=== PATIENT | male | born 1940 | race Caucasian/White ===

== ENCOUNTER 2023-02-10 10:07 | Emergency (ER) | payer OTHER ==
--- OUTSIDE RECORDS SUMMARY | 2023-02-10 10:20 | XMS REPORT | Continuity of Care Document ---
:1940 Author Organization [facility] t Address [address] [facility] [address] [place] [address] Support Name Relationship Address Phone MARAL BECK Unavailable [phone] L French Beck Self [address] [facility] [phone] [place] [address] Care Team Providers Name Role Phone ALIE DIEGO Primary Care Physician Unavailable Yefarb_R Attending Clinician Unavailable Alexander BRISCOE, Dennis Montenegro Attending Clinician [phone] Scott BRISCOE, Juan Velasco Attending Clinician Parul BRISCOE, Jes Aranda Attending Clinician [phone] April Chris MA Attending Clinician Unavailable Emil Riley Attending Clinician EMIL PINZON Attending Clinician Unavailable Denis WILSON, Lorraine Brown Attending Clinician Bhupendra Castellon Attending Clinician [phone] BEVERLY DE LA GARZA Attending Clinician Unavailable Johnnieb_R Admitting Clinician Unavailable EMIL PINZON Admitting Clinician Unavailable Payers Payer Name Policy Type Policy Number Effective Date Expiration Date Ramesh LANDRY (MEDICARE [id number] 2021 REPLACEMENT PPO) 00:00:00 Problems Condition Condition Condition Status Onset Resolution Last Treating Co mments Source Name Details Category Date Date Treatment Clinician Date Class 1 Class 1 Disease Active [facility] obesity obesity 11-26 due to due to 00:00: Hospita excess excess 00 l calories calories with with serious serious comorbidit comorbidit y and body y and body mass index mass index (BMI) of (BMI) of 34.0 to 34.0 to 34.9 in 34.9 in adult adult Coronary Coronary Disease Active [facility] di artery artery 8 st calcificat calcificat 00:00: Ho spita ion seen ion seen 00 l on CAT on CAT scan scan Dyspnea Dyspnea Disease Active [facility] and and 11-02 respirator respirator 00:00: Ho spita y y 00 l abnormalit abnormalit ies ies Hypoxemia Hypoxemia Disease Active [facility] 11-02 00:00: Hospita 00 l Pulmonary Pulmonary Disease Active [facility] embolus embolus 11-02 00:00: Hospita 00 l Deep vein Deep vein Disease Active [facility] thrombosis thrombosis 11-02 00:00: Hospita 00 l Erectile Erectile Problem Active [place] on dysfunctio Dysfunctio 3 Pa tro n n 00:00: Urology 00 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 05-19 kidney kidney 00:00: Hospita disease disease 00 l (HCC) Cr (HCC) Cr 1.5mg/dL 1.5mg/dL 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 05-19 mellitus mellitus 00:00: Hospit a without without 00 l complicati complicati on, on, without without long-term long-term current current use of use of insulin insulin Urinary Urinary Disease Active [facility] tract tract 06-16 infectious infectious 00:00: Ho spita disease disease 00 l Deep vein Deep vein Disease Active 2016-04 [facility] thrombosis thrombosis 05-27 (DVT) (DVT) 00:00: Hospita 00 l Elevated Elevated Disease Active 2016-04 [facility] di blood-pres blood-pres 05-27 sure sure 00:00: Hospita reading reading 00 l without without diagnosis diagnosis of of hypertensi hypertensi on on Hyperglyce Hyperglyce Disease Active 2016-04 M ethodi wilian wilian 05-27 00:00: Hospita 00 l Hyperkalem Hyperkalem Disease Active 2016-04 M ethodi ia ia 2-01 st 00:00: Hospita 00 l Hemospermi Hemospermi Disease Active M ethodi a a 09-18 st 00:00: Hospita 00 l Kidney Kidney Disease Active [facility] disease disease 09-18 st 00:00: Hospita 00 l Lower Lower Problem Active [place] urinary Urinary 2-15 [facility] tract Tract 00:00: Urology symptoms Symptoms 00 due to Due to benign Benign prostatic Prostatic hypertroph Hypertroph y y 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 2-15 st kidney kidney 00:00: Hospita disease disease 00 l 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 00:00: Hosp reinaldo 00 l 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 00:00: Ho spita c c 00 l hematuria hematuria Pulmonary Pulmonary Disease Active [facility] embolism embolism 04-26 st 00:00: Hospita 00 l No known No known Disease Unive rs active active ity of problems problems [facility] Allergies, Adverse Reactions, Alerts Allergy Allergy Status Severity Reaction(s) Onset Inactive Treating Comm ents Source Name Type Date Date Clinician Penicill Propensi Active Shortness of 2021-04 [facility] ins ty to Breath 1-30 ity of adverse 00:00: [place] reaction 00 [facility] PENICILL Drug Active SOB 2021-04 Univers INS Class 1-30 ity of 00:00: [place] 00 [facility] Cephalos Propensi Active Method i porins ty to 6-20 st adverse 00:00: Hospita reaction 00 l s to drug Penicill Propensi Active Method i ins ty to 6-20 st adverse 00:00: Hospita reaction 00 l s to drug Cephalos Propensi Active Shortness Of [facility] porins ty to Breath 3-30 st adverse 00:00: Hospita reaction 00 l s to drug Penicill Propensi Active Hives [facility] ins ty to 3-30 st adverse 00:00: Hospita reaction 00 l s to drug Cephalex Allergy Active [place] in to 04-26 [facility] substanc 00:00: Urology e 00 PENICILL Allergy Active Rash [facility] INS to 04-26 [facility] substanc 00:00: Urology e 00 NO KNOWN Drug Active Univers ALLERGIE Class ity of S [facility] Family History Family Member Diagnosis Comments Start Date Stop Date Source Natural [facility] Natural mother Breast cancer [facility] Natural [facility] Natural mother [facility] Social History Social Habit Start Date Stop Date Quantity Comments Source History of tobacco Current smoker [facility] Alcohol intake 2022-12-24 2022-12-24 Current drinker [facility] dist 00:00:00 00:00:00 of alcohol Hospital (finding) History of Social 2022-12-24 2022-12-[address] function 00:00:00 00:00:00 Hospital Tobacco use and 2022-05-25 2022-05-25 Smokeless [facility] exposure 00:00:00 00:00:00 tobacco non-user Hospital Sex Ass[birth year] At [birth year] [facility] 00:00:00 00:00:00 Hospital Smoking Status Start Date Stop Date Source Tobacco smoking [facility] consumption unknown [facility] Ex-smoker 2022-05-25 00:00:00 2022-05-25 [facility] 00:00:00 Medications Ordered Filled Start Stop Current Ordering Indication Dosage Frequency Signature Comments Components Source Medication Medication Date Date Medication? Clinician (SIG) Name Name pantoprazol Yes TAKE 1 Meth janae e 9-[address] (PROTONIX) 00:00: MOUTH Hospit a 40 MG EC 00 EVERY DAY l tablet tadalafil Yes 20mg Q24H Take 1 Method i (CIALIS) 20 8-31 tablet (20 st mg tablet 11:37: mg total) Hos sheri 03 by mouth l daily as needed. multivitami Yes 1{tbl} QD Take 1 Me thodi n 8-[address] (THERAGRAN) 11:37: mouth Hospi ta tablet 03 daily. l rivaroxaban Yes 15mg QD Take 1 Meth janae (Xarelto) 8-02 tablet (15 st 15 mg 00:00: mg total) Hospita tablet 00 by mouth l daily. pantoprazol 2022- No TAKE 1 Met hodi e 6-12 09-[address] (PROTONIX) 00:00: 00:00 MOUTH Hospi ta 40 MG EC 00 :00 EVERY DAY l tablet metFORMIN Yes TAKE 1 Method i (GLUCOPHAGE 5-[address] ) 500 mg 00:00: MOUTH Hospita tablet 00 TWICE A l DAY pantoprazol 2022- No TAKE 1 Met hodi e 3-13 06-[address] (PROTONIX) 00:00: 00:00 MOUTH Hospi ta 40 MG EC 00 :00 EVERY DAY l tablet rivaroxaban 2022- No TAKE 1 Met [facility]odi (Xarelto) 2-10 08-[address] 20 mg 00:00: 00:00 MOUTH Hospita tablet 00 :00 EVERY DAY l cholecalcif 2022- No 5000U QD Take 5,000 [facility] silva, 1-30 01-[address] vitamin D3, 12:23: 00:00 mouth Hosp reinaldo 5,000 unit 14 :00 daily. 3 l capsule TABLETS BY MOUTH DAILY pantoprazol 2021-04 Yes TAKE 1 Meth jaane e 2-[address] (PROTONIX) 00:00: MOUTH Hospit a 40 MG EC 00 EVERY DAY l tablet pantoprazol 2021-04 Yes TAKE 1 Meth janae e 2-[address] (PROTONIX) 00:00: MOUTH Hospit a 40 MG EC 00 EVERY DAY l tablet pantoprazol 2021-04 Yes TAKE 1 Meth janae e 2-[address] (PROTONIX) 00:00: MOUTH Hospit a 40 MG EC 00 EVERY DAY l tablet pantoprazol 2021-04 Yes TAKE 1 Meth janae e 2-[address] (PROTONIX) 00:00: MOUTH Hospit a 40 MG EC 00 EVERY DAY l tablet pantoprazol 2021-04- No TAKE 1 Met hodi e 2-15 03-[address] (PROTONIX) 00:00: 00:00 MOUTH Hospi ta 40 MG EC 00 :00 EVERY DAY l tablet No known 2021-04 No No known Unive rs medications -30 medication it y of 11:47: s [address] rivaroxaban 2021-04 Yes TAKE 1 Meth janae (Xarelto) 1-[address] 20 mg 00:00: MOUTH Hospita tablet 00 EVERY DAY l rivaroxaban 2021-04 Yes TAKE 1 Meth janae (Xarelto) 1-[address] 20 mg 00:00: MOUTH Hospita tablet 00 EVERY DAY l rivaroxaban 2021-04 Yes TAKE 1 Meth janae (Xarelto) 1-[address] 20 mg 00:00: MOUTH Hospita tablet 00 EVERY DAY l rivaroxaban 2021-04 Yes TAKE 1 Meth janae (Xarelto) 1-[address] 20 mg 00:00: MOUTH Hospita tablet 00 EVERY DAY l rivaroxaban 2021-04- No TAKE 1 Met hodi (Xarelto) 1-07 02-[address] 20 mg 00:00: 00:00 MOUTH Hospita tablet 00 :00 EVERY DAY l pantoprazol No 40mg QD Take 1 Met hodi e 01-12 tablet (40 st (PROTONIX) 14:55: 00:00 mg total) H ospita 40 MG EC 49 :00 by mouth l tablet daily. pantoprazol No 40mg QD Take 1 Met hodi e 01-12 tablet (40 st (PROTONIX) 14:55: 00:00 mg total) H ospita 40 MG EC 49 :00 by mouth l tablet daily. pantoprazol No 40mg QD Take 1 Met hodi e 01-12 tablet (40 st (PROTONIX) 14:55: 00:00 mg total) H ospita 40 MG EC 49 :00 by mouth l tablet daily. pantoprazol No 40mg QD Take 1 Met hodi e 01-12 tablet (40 st (PROTONIX) 14:55: 00:00 mg total) H ospita 40 MG EC 49 :00 by mouth l tablet daily. pantoprazol 2021- No TAKE 1 Met hodi e 01-12-[address] (PROTONIX) 00:00: 00:00 MOUTH Hospi ta 40 MG EC 00 :00 EVERY DAY l tablet pantoprazol 2021- No TAKE 1 Met hodi e 01-12-[address] (PROTONIX) 00:00: 00:00 MOUTH Hospi ta 40 MG EC 00 :00 EVERY DAY l tablet pantoprazol 0 2021- No TAKE 1 Met hodi e 01-12 12-[address] (PROTONIX) 00:00: 00:00 MOUTH Hospi ta 40 MG EC 00 :00 EVERY DAY l tablet pantoprazol 0 2021- No TAKE 1 Met hodi e 01-12 12-[address] (PROTONIX) 00:00: 00:00 MOUTH Hospi ta 40 MG EC 00 :00 EVERY DAY l tablet pantoprazol 2021- No TAKE 1 Met hodi e 01-12 12-[address] (PROTONIX) 00:00: 00:00 MOUTH Hospi ta 40 MG EC 00 :00 EVERY DAY l tablet multivitami 2021-0 Yes 1{tbl} QD Take 1 Me thodi n 9-07 tablet by (THERAGRAN) 14:04: mouth Hospi ta tablet 17 daily. l cholecalcif 2021-0 Yes 5000U QD Take 5,000 Method[facility] silva, 9-07 Units by vitamin D3, 14:04: mouth Hospi ta 5,000 unit 17 daily. 3 l capsule TABLETS BY MOUTH DAILY tadalafil 2-0 Yes 20mg Q24H Take 20 mg Me thodi (CIALIS) 20 9-[address] mg tablet 14:04: daily as Hosp reinaldo 17 needed. l multivitami 2-0 Yes 1{tbl} QD Take 1 Me thodi n 9-07 tablet by (THERAGRAN) 14:04: mouth Hospi ta tablet 17 daily. l cholecalcif 2021-0 Yes 5000U QD Take 5,000 Methodi silva, 9-07 Units by vitamin D3, 14:04: mouth Hospi ta 5,000 unit 17 daily. 3 l capsule TABLETS BY MOUTH DAILY tadalafil 2022-0 Yes 20mg Q24H Take 20 mg Me thodi (CIALIS) 20 9-[address] mg tablet 14:04: daily as Hosp reinaldo 17 needed. l multivitami 2-0 Yes 1{tbl} QD Take 1 Me thodi n 9-07 tablet by (THERAGRAN) 14:04: mouth Hospi ta tablet 17 daily. l cholecalcif 2-0 Yes 5000U QD Take 5,000 Methodi silva, 9-[address] vitamin D3, 14:04: mouth Hospi ta 5,000 unit 17 daily. 3 l capsule TABLETS BY MOUTH DAILY tadalafil 0 Yes 20mg Q24H Take 20 mg Me thodi (CIALIS) 20 -[address] mg tablet 14:04: daily as Hosp reinaldo 17 needed. l multivitami Yes 1{tbl} QD Take 1 Me thodi n - tablet by st (THERAGRAN) 14:04: mouth Hospi ta tablet 17 daily. l cholecalcif Yes 5000U QD Take 5,000 Methodi silva, 9-07 Units by vitamin D3, 14:04: mouth Hospi ta 5,000 unit 17 daily. 3 l capsule TABLETS BY MOUTH DAILY tadalafil 0 Yes 20mg Q24H Take 20 mg Me thodi (CIALIS) 20 12-[address] mg tablet 14:04: daily as Hosp reinaldo 17 needed. l Xarelto 20 2021- No TAKE 1 Meth janae mg tablet 09-[address] 00:00: 00:00 MOUTH Hospita 00 :00 EVERY DAY l Xarelto 20 2021-0 2021- No TAKE 1 Meth janae mg tablet 09-[address] 00:00: 00:00 MOUTH Hospita 00 :00 EVERY DAY l Xarelto 20 2021-0 2021- No TAKE 1 Meth janae mg tablet 09-[address] 00:00: 00:00 MOUTH Hospita 00 :00 EVERY DAY l Xarelto 20 2021-0 2021- No TAKE 1 Meth janae mg tablet 09-[address] 00:00: 00:00 MOUTH Hospita 00 :00 EVERY DAY l Xarelto 20 2021-0 2021- No TAKE 1 Meth janae mg tablet 09-[address] 00:00: 00:00 MOUTH Hospita 00 :00 EVERY DAY l metFORMIN 2021-2021- No 500mg Q.5D Take 500 Me thodi (GLUCOPHAGE 09 05-[address] ) 500 mg 13:08: 00:00 mouth 2 Hospi ta tablet 19 :00 (two) l times a day with meals. metFORMIN 2021- No 500mg Q.5D Take 500 Me thodi (GLUCOPHAGE 5-09 05-[address] ) 500 mg 13:08: 00:00 mouth 2 Hospi ta tablet 19 :00 (two) l times a day with meals. metFORMIN 2021- No 500mg Q.5D Take 500 Me thodi (GLUCOPHAGE 5-09 05-[address] ) 500 mg 13:08: 00:00 mouth 2 Hospi ta tablet 19 :00 (two) l times a day with meals. metFORMIN 2021- No 500mg Q.5D Take 500 Me thodi (GLUCOPHAGE 5-09 05-[address] ) 500 mg 13:08: 00:00 mouth 2 Hospi ta tablet 19 :00 (two) l times a day with meals. metFORMIN Yes TAKE 1 Method i (GLUCOPHAGE 5-[address] ) 500 mg 00:00: MOUTH Hospita tablet 00 TWICE A l DAY metFORMIN 0 Yes TAKE 1 Method i (GLUCOPHAGE 5-[address] ) 500 mg 00:00: MOUTH Hospita tablet 00 TWICE A l DAY metFORMIN 0 Yes TAKE 1 Method i (GLUCOPHAGE 5-[address] ) 500 mg 00:00: MOUTH Hospita tablet 00 TWICE A l DAY metFORMIN 2021-0 Yes TAKE 1 Method i (GLUCOPHAGE 5-[address] ) 500 mg 00:00: MOUTH Hospita tablet 00 TWICE A l DAY metFORMIN 2021-0 2022- No TAKE 1 Metho di (GLUCOPHAGE 5-09 05-[address] ) 500 mg 00:00: 00:00 MOUTH Hospita tablet 00 :00 TWICE A l DAY pantoprazol 2021- No pantoprazo Methodi e 05-[address] (PROTONIX) 15:32: 00:00 tablet,del Hospita 40 MG EC 01 :00 ayed l tablet release pantoprazol 2021- No pantoprazo Methodi e 05-[address] (PROTONIX) 15:32: 00:00 tablet,del Hospita 40 MG EC 01 :00 ayed l tablet release pantoprazol 2021- No pantoprazo Methodi e 05-[address] (PROTONIX) 15:32: 00:00 tablet,del Hospita 40 MG EC 01 :00 ayed l tablet release pantoprazol pantoprazo Methodi e 05-[address] (PROTONIX) 15:32: 00:00 tablet,del Hospita 40 MG EC 01 :00 ayed l tablet release ascorbic 2021- No 500mg QD Take 500 Met hodi acid, 05-19-24 mg by vitamin C, 15:31: 00:00 mouth Hospi ta (VITAMIN C) 57 :00 daily. l 500 MG tablet ascorbic 2021- No 500mg QD Take 500 Met hodi acid, 05-19-24 mg by vitamin C, 15:31: 00:00 mouth Hospi ta (VITAMIN C) 57 :00 daily. l 500 MG tablet ascorbic No 500mg QD Take 500 Met hodi acid, 05-19-24 mg by vitamin C, 15:31: 00:00 mouth Hospi ta (VITAMIN C) 57 :00 daily. l 500 MG tablet ascorbic No 500mg QD Take 500 Met hodi acid, 05-19-24 mg by vitamin C, 15:31: 00:00 mouth Hospi ta (VITAMIN C) 57 :00 daily. l 500 MG tablet Xarelto 20 2021- No TAKE 1 Meth janae mg tablet 12-26-[address] 00:00: 00:00 MOUTH Hospita 00 :00 EVERY DAY l Xarelto 20 2021- No TAKE 1 Meth janae mg tablet 12-26 05-[address] 00:00: 00:00 MOUTH Hospita 00 :00 EVERY DAY l Xarelto 20 2021- No TAKE 1 Meth janae mg tablet 12-26 05-[address] 00:00: 00:00 MOUTH Hospita 00 :00 EVERY DAY l Xarelto 20 2021- No TAKE 1 Meth janae mg tablet 12-26 05-[address] 00:00: 00:00 MOUTH Hospita 00 :00 EVERY DAY l pantoprazol 2021- No TAKE 1 Met hodi e 08-[address] (PROTONIX) 00:00: 00:00 MOUTH Hospi ta 40 MG EC 00 :00 EVERY DAY l tablet pantoprazol 2021- No TAKE 1 Met hodi e 08-[address] (PROTONIX) 00:00: 00:00 MOUTH Hospi ta 40 MG EC 00 :00 EVERY DAY l tablet pantoprazol 2021- No TAKE 1 Met hodi e 08-[address] (PROTONIX) 00:00: 00:00 MOUTH Hospi ta 40 MG EC 00 :00 EVERY DAY l tablet pantoprazol 2021- No TAKE 1 Met hodi e 08-[address] (PROTONIX) 00:00: 00:00 MOUTH Hospi ta 40 MG EC 00 :00 EVERY DAY l tablet ammonium ammonium No ammonium [place] ston lactate 12 lactate 12 lactate 12 [facility] % lotion % lotion % lotion Uro logy APPLY DAILY APPLY DAILY APPLY TO LEGS TO LEGS DAILY TO LEGS BinaxNOW BinaxNOW No BinaxNOW [facility] ston COVID-19 Ag COVID-19 Ag COVID-19 [facility] Self Test Self Test Ag Self Ur ology kit REFER kit REFER Test kit TO TO REFER TO MANUFACTURE MANUFACTURE MANUFACTUR R R ER INSTRUCTION INSTRUCTION INSTRUCTIO S INCLUDED S INCLUDED NS IN IN INCLUDED PACKAGING PACKAGING IN PACKAGING ciprofloxac ciprofloxac No ciprofloxa [place] in 250 mg in 250 mg letha 250 mg [facility] tablet TAKE tablet TAKE tablet Urology 1 TABLET BY 1 TABLET BY TAKE 1 MOUTH EVERY MOUTH EVERY TABLET BY 12 HOURS 12 HOURS MOUTH FOR 7 DAYS FOR 7 DAYS EVERY 12 HOURS FOR 7 DAYS clindamycin clindamycin No clindamyci [place] phosphate 1 phosphate 1 n M etro % topical % topical phosphate Urology solution solution 1 % AFFECTED AFFECTED topical EAR TWICE A EAR TWICE A solution DAY TO NECK DAY TO NECK AFFECTED EAR TWICE A DAY TO NECK magnesium magnesium No magnesium [place] oxide 400 oxide 400 oxide 400 [facility] mg (241.3 mg (241.3 mg (241.3 Urology mg mg mg magnesium) magnesium) magnesium) tablet TAKE tablet TAKE tablet 1 TABLET BY 1 TABLET BY TAKE 1 MOUTH EVERY MOUTH EVERY TABLET BY DAY DAY MOUTH EVERY DAY metformin metformin No metformin [place] 500 mg 500 mg 500 mg [facility] tablet TAKE tablet TAKE tablet Urology 1 TABLET BY 1 TABLET BY TAKE 1 MOUTH TWICE MOUTH TWICE TABLET BY A DAY A DAY MOUTH TWICE A DAY minocycline minocycline No minocyclin [place] 100 mg 100 mg e 100 mg [facility] capsule capsule capsule Urolog y TAKE 1 TAKE 1 TAKE 1 CAPSULE BY CAPSULE BY CAPSULE BY MOUTH TWICE MOUTH TWICE MOUTH A DAY A DAY TWICE A DAY multivitami multivitami No multivitam [place] n n in [facility] Urology pantoprazol pantoprazol No pantoprazo [place] e 40 mg e 40 mg le 40 mg [facility] tablet,gary tablet,gary tablet,del Urology yed release yed release ayed TAKE 1 TAKE 1 release TABLET BY TABLET BY TAKE 1 MOUTH EVERY MOUTH EVERY TABLET BY DAY DAY MOUTH EVERY DAY tadalafil tadalafil No tadalafil [place] 20 mg 20 mg 20 mg [facility] tablet TAKE tablet TAKE tablet Urology 1 TABLET BY 1 TABLET BY TAKE 1 MOUTH EVERY MOUTH EVERY TABLET BY DAY DAY MOUTH DIRECTED DIRECTED EVERY DAY DIRECTED triamcinolo triamcinolo No triamcinol [place] ne ne one [facility] acetonide acetonide acetonide Urology 0.1 % 0.1 % 0.1 % topical topical topical cream APPLY cream APPLY cream TWICE DAILY TWICE DAILY APPLY TO LEGS TO LEGS TWICE DAILY TO LEGS Xarelto 20 Xarelto 20 No Xarelto 20 [place] mg tablet mg tablet mg tablet [facility] TAKE 1 TAKE 1 TAKE 1 Urology TABLET BY TABLET BY TABLET BY MOUTH EVERY MOUTH EVERY MOUTH DAY DAY EVERY DAY albuterol albuterol No albuterol [place] sulfate HFA sulfate HFA sulfate [facility] 90 90 HFA 90 Urology mcg/actuati mcg/actuati mcg/actuat on aerosol on aerosol ion inhaler inhaler aerosol inhaler ammonium ammonium No ammonium [place] [facility] lactate 12 lactate 12 lactate 12 [facility] % lotion % lotion % lotion Uro logy APPLY DAILY APPLY DAILY APPLY TO LEGS TO LEGS DAILY TO LEGS Anoro Anoro No Anoro [place]rewal Ellipta Ellipta Ellipta Metro 62.5 mcg-25 62.5 mcg-25 62.5 U rology mcg/actuati mcg/actuati mcg-25 on powder on powder mcg/actuat for for ion powder inhalation inhalation for inhalation BinaxNOW BinaxNOW No BinaxNOW [facility] ston COVID-19 Ag COVID-19 Ag COVID-19 [facility] Self Test Self Test Ag Self Ur ology kit REFER kit REFER Test kit TO TO REFER TO MANUFACTURE MANUFACTURE MANUFACTUR R R ER INSTRUCTION INSTRUCTION INSTRUCTIO S INCLUDED S INCLUDED NS IN IN INCLUDED PACKAGING PACKAGING IN PACKAGING ciprofloxac ciprofloxac No ciprofloxa [place] in 250 mg in 250 mg letha 250 mg [facility] tablet TAKE tablet TAKE tablet Urology 1 TABLET BY 1 TABLET BY TAKE 1 MOUTH EVERY MOUTH EVERY TABLET BY 12 HOURS 12 HOURS MOUTH FOR 7 DAYS FOR 7 DAYS EVERY 12 HOURS FOR 7 DAYS clindamycin clindamycin No clindamyci [place] phosphate 1 phosphate 1 n M etro % topical % topical phosphate Urology solution solution 1 % AFFECTED AFFECTED topical EAR TWICE A EAR TWICE A solution DAY TO NECK DAY TO NECK AFFECTED EAR TWICE A DAY TO NECK magnesium magnesium No magnesium [place] oxide 400 oxide 400 oxide 400 [facility] mg (241.3 mg (241.3 mg (241.3 Urology mg mg mg magnesium) magnesium) magnesium) tablet TAKE tablet TAKE tablet 1 TABLET BY 1 TABLET BY TAKE 1 MOUTH EVERY MOUTH EVERY TABLET BY DAY DAY MOUTH EVERY DAY metformin metformin No metformin [place] 500 mg 500 mg 500 mg [facility] tablet TAKE tablet TAKE tablet Urology 1 TABLET BY 1 TABLET BY TAKE 1 MOUTH TWICE MOUTH TWICE TABLET BY A DAY A DAY MOUTH TWICE A DAY minocycline minocycline No minocyclin [place] 100 mg 100 mg e 100 mg [facility] capsule capsule capsule Urolog y TAKE 1 TAKE 1 TAKE 1 CAPSULE BY CAPSULE BY CAPSULE BY MOUTH TWICE MOUTH TWICE MOUTH A DAY A DAY TWICE A DAY multivitami multivitami No multivitam [place] n n in [facility] pantoprazol pantoprazol No pantoprazo [place] e 40 mg e 40 mg le 40 mg [facility] tablet,gary tablet,gary tablet,del Urology yed release yed release ayed TAKE 1 TAKE 1 release TABLET BY TABLET BY TAKE 1 MOUTH EVERY MOUTH EVERY TABLET BY DAY DAY MOUTH EVERY DAY tadalafil tadalafil No tadalafil [place] 20 mg 20 mg 20 mg [facility] tablet TAKE tablet TAKE tablet Urology 1 TABLET BY 1 TABLET BY TAKE 1 MOUTH EVERY MOUTH EVERY TABLET BY DAY DAY MOUTH DIRECTED DIRECTED EVERY DAY DIRECTED triamcinolo triamcinolo No triamcinol [facility] ne ne one [facility] acetonide acetonide acetonide Urology 0.1 % 0.1 % 0.1 % topical topical topical cream APPLY cream APPLY cream TWICE DAILY TWICE DAILY APPLY TO LEGS TO LEGS TWICE DAILY TO LEGS Xarelto 15 Xarelto 15 No Xarelto 15 [place] mg tablet mg tablet mg tablet [facility] Xarelto 20 Xarelto 20 No Xarelto 20 [place] mg tablet mg tablet mg tablet [facility] TAKE 1 TAKE 1 TAKE 1 Urology TABLET BY TABLET BY TABLET BY MOUTH EVERY MOUTH EVERY MOUTH DAY DAY EVERY DAY ciprofloxac ciprofloxac No ciprofloxa [place] in 500 mg in 500 mg letha 500 mg [facility] tablet TAKE tablet TAKE tablet Urology 1 TABLET BY 1 TABLET BY TAKE 1 MOUTH TWICE MOUTH TWICE TABLET BY A DAY A DAY MOUTH TWICE A DAY metformin metformin No metformin [place] 500 mg 500 mg 500 mg [facility] tablet TAKE tablet TAKE tablet Urology 1 TABLET BY 1 TABLET BY TAKE 1 MOUTH TWICE MOUTH TWICE TABLET BY A DAY A DAY MOUTH TWICE A DAY metronidazo metronidazo No metronidaz [place] le 500 mg le 500 mg ole 500 mg [facility] tablet TAKE tablet TAKE tablet Urology 1 TABLET BY 1 TABLET BY TAKE 1 MOUTH THREE MOUTH THREE TABLET BY TIMES A DAY TIMES A DAY MOUTH THREE TIMES A DAY multivitami multivitami No multivitam [place] n n in [facility] pantoprazol pantoprazol No pantoprazo [place] e 40 mg e 40 mg le 40 mg [facility] tablet,gary tablet,gary tablet,del Urology yed release yed release ayed TAKE 1 TAKE 1 release TABLET BY TABLET BY TAKE 1 MOUTH EVERY MOUTH EVERY TABLET BY DAY DAY MOUTH EVERY [facility] tadalafil tadalafil No tadalafil [place] 20 mg 20 mg 20 mg [facility] tablet TAKE tablet TAKE tablet Urology 1 TABLET BY 1 TABLET BY TAKE 1 MOUTH EVERY MOUTH EVERY TABLET BY DAY DAY MOUTH DIRECTED DIRECTED EVERY DAY DIRECTED tamsulosin tamsulosin No tamsulosin [facility] 0.4 mg 0.4 mg 0.4 mg [facility] capsule capsule capsule Urolog y TAKE 1 TAKE 1 TAKE 1 CAPSULE BY CAPSULE BY CAPSULE BY MOUTH EVERY MOUTH EVERY MOUTH DAY DAY EVERY DAY Xarelto 20 Xarelto 20 No Xarelto 20 [facility] mg tablet mg tablet mg tablet [facility] TAKE 1 TAKE 1 TAKE 1 Urology TABLET BY TABLET BY TABLET BY MOUTH EVERY MOUTH EVERY MOUTH DAY DAY EVERY DAY ammonium ammonium No ammonium [facility] lactate 12 lactate 12 lactate 12 [facility] % lotion % lotion % lotion Uro logy APPLY DAILY APPLY DAILY APPLY TO LEGS TO LEGS DAILY TO LEGS BinaxNOW BinaxNOW No BinaxNOW [facility] COVID-19 Ag COVID-19 Ag COVID-19 [facility] Self Test Self Test Ag Self Ur ology kit REFER kit REFER Test kit TO TO REFER TO MANUFACTURE MANUFACTURE MANUFACTUR R R ER INSTRUCTION INSTRUCTION INSTRUCTIO S INCLUDED S INCLUDED NS IN IN INCLUDED PACKAGING PACKAGING IN PACKAGING clindamycin clindamycin No clindamyci [place] phosphate 1 phosphate 1 n M etro % topical % topical phosphate Urology solution solution 1 % APPLY TO APPLY TO topical AFFECTED AFFECTED solution AREA TWICE AREA TWICE APPLY TO A DAY A DAY AFFECTED AREA TWICE A DAY magnesium magnesium No magnesium Grewal oxide 400 oxide 400 oxide 400 [facility] mg (241.3 mg (241.3 mg (241.3 Urology mg mg mg magnesium) magnesium) magnesium) tablet TAKE tablet TAKE tablet 1 TABLET BY 1 TABLET BY TAKE 1 MOUTH EVERY MOUTH EVERY TABLET BY DAY DAY MOUTH EVERY DAY metformin metformin No metformin [place] 500 mg 500 mg 500 mg [facility] tablet TAKE tablet TAKE tablet Urology 1 TABLET BY 1 TABLET BY TAKE 1 MOUTH TWICE MOUTH TWICE TABLET BY A DAY A DAY MOUTH TWICE A DAY multivitami multivitami No multivitam [place] n in [facility] pantoprazol pantoprazol No pantoprazo [place] e 40 mg e 40 mg le 40 mg [facility] tablet,gary tablet,gary tablet,del Urology yed release yed release ayed TAKE 1 TAKE 1 release TABLET BY TABLET BY TAKE 1 MOUTH EVERY MOUTH EVERY TABLET BY DAY DAY MOUTH EVERY DAY tadalafil tadalafil No tadalafil [place] 20 mg 20 mg 20 mg [facility] tablet TAKE tablet TAKE tablet Urology 1 TABLET BY 1 TABLET BY TAKE 1 MOUTH EVERY MOUTH EVERY TABLET BY DAY DAY MOUTH DIRECTED DIRECTED EVERY DAY DIRECTED triamcinolo triamcinolo No triamcinol [place] ne ne one [facility] acetonide acetonide acetonide Urology 0.1 % 0.1 % 0.1 % topical topical topical cream APPLY cream APPLY cream TWICE DAILY TWICE DAILY APPLY TO LEGS TO LEGS TWICE DAILY TO LEGS Xarelto 20 Xarelto 20 No Xarelto 20 [place] mg tablet mg tablet mg tablet [facility] TAKE 1 TAKE 1 TAKE 1 Urology TABLET BY TABLET BY TABLET BY MOUTH EVERY MOUTH EVERY MOUTH DAY DAY EVERY DAY Immunizations Ordered Immunization Filled Immunization Date Status Commen ts Source Name Name TechozID-19 MRNA 2020-05-23 Completed [facility] VACCINATION 00:00:00 [facility] PFIZER COVID-19 MRNA 2020-05-23 Completed [facility] VACCINATION 00:00:00 [facility] PFIZER COVID-19 MRNA 2020-05-23 Completed [facility] VACCINATION 00:00:00 [facility] PFIZER COVID-19 MRNA 2020-05-23 Completed [facility] VACCINATION 00:00:00 [facility] PFIZER COVID-19 MRNA 2020-05-04 Completed [facility]ist VACCINATION 00:00:00 [facility] PFIZER COVID-19 MRNA 2020-05-04 Completed [facility]ist VACCINATION 00:00:00 [facility] PFIZER COVID-19 MRNA 2020-05-04 Completed [facility] VACCINATION 00:00:00 [facility] PFIZER COVID-19 MRNA 2020-05-04 Completed [facility]ist VACCINATION 00:00:00 [facility] influenza, influenza, 2020-02-25 Completed [place] [facility] injectable, injectable, 00:00:00 Urology quadrivalent quadrivalent influenza, influenza, 2020-02-25 [facility], [facility]:00 Urology quadrivalent quadrivalent influenza, influenza, 2020-02-25 [facility], injectable, 00:00:00 Urology quadrivalent quadrivalent influenza, influenza, 2020-02-25 Completed [facility], injectable, 00:00:00 Urology quadrivalent quadrivalent influenza, influenza, 2018-06-20 Completed [facility], injectable, 00:00:00 Urology quadrivalent quadrivalent influenza, influenza, 2018-06-20 Completed [facility], injectable, 00:00:00 Urology quadrivalent quadrivalent influenza, influenza, 2018-06-20 Completed [place] [facility] injectable, injectable, 00:00:00 Urology quadrivalent quadrivalent influenza, influenza, 2018-06-20 Completed [facility], injectable, 00:00:00 Urology quadrivalent quadrivalent influenza, influenza, 2018-01-04 Completed [place] [facility] injectable, injectable, 00:00:00 Urology quadrivalent quadrivalent influenza, influenza, 2018-01-04 Completed [place] [facility] injectable, injectable, 00:00:00 Urology quadrivalent quadrivalent influenza, influenza, 2018-01-04 Completed [place] [facility] injectable, injectable, 00:00:00 Urology quadrivalent quadrivalent influenza, influenza, 2018-01-04 [facility], injectable, 00:00:00 Urology quadrivalent quadrivalent pneumococcal pneumococcal 2017-02-01 Completed [facility] tro polysaccharide PPV23 polysaccharide PPV23 00:00:00 Urology pneumococcal pneumococcal 2017-02-01 Completed [facility] tro polysaccharide PPV23 polysaccharide PPV23 00:00:00 Urology pneumococcal pneumococcal 2017-02-01 Completed [facility] tro polysaccharide PPV23 polysaccharide PPV23 00:00:00 Urology pneumococcal pneumococcal 2017-02-01 Completed [facility] tro polysaccharide PPV23 polysaccharide PPV23 00:00:00 Urology PFIZER COVID-19 MRNA Unknown Completed [facility] PFIZER COVID-19 MRNA Unknown Completed [facility] Vital Signs Vital Name Observation Time Observation Value Comments Source Height 2022-05-25 00:00:00 71 [in_i] [facility] Urology BMI (Body Mass 2022-05-25 00:00:00 34.9 kg/m2 [place] Index) [facility]rology Body Weight 2022-05-25 00:00:00 250 [lb_av] [facility] Systolic blood 2022-03-25 17:26:00 132 mm[Hg] [facility] Diastolic blood 2022-03-25 17:26:00 98 mm[facility]Hg[facility] Heart rate 2022-03-25 17:26:00 104 /min [facility] Body temperature 2022-03-25 17:26:00 36.89 Shakira [facility] Respiratory rate 2022-03-25 17:26:00 18 /min [facility] Body height 2022-03-25 17:26:00 177.8 cm [facility] Body weight 2022-03-25 17:26:00 113.399 kg [facility] BMI 2022-03-25 17:26:00 35.87 kg/m2 [facility] Oxygen saturation in 2022-03-25 17:26:00 96 /min [facility] Arterial blood by [facility] Pulse oximetry [facility] 2021-06-25 00:00:00 71 [in_i] [facility] Urology BMI (Body Mass 2021-06-25 00:00:00 34.9 kg/m2 [place] Index) Urology Body Weight 2021-06-25 00:00:00 250 [lb_av] [facility] Urology Body height 2022-12-24 16:37:00 180.3 cm [facility] Systolic blood 2022-11-25 21:17:00 138 mm[Hg] [facility] pressure Diastolic blood 2022-11-25 21:17:00 84 mm[Hg] [facility] pressure Heart rate 2022-11-25 21:17:00 93 /min [facility] Body weight 2022-11-25 21:17:00 112.492 kg [facility] BMI 2022-11-25 21:17:00 34.59 kg/m2 [facility] Systolic blood 2022-03-13 03:19:00 122 mm[Hg] [facility] pressure Diastolic blood 2022-03-13 03:19:00 80 mm[Hg] [facility] Hospital pressure Heart rate 2022-03-13 03:19:00 93 /min [facility] Body height 2022-03-13 03:19:00 180.3 cm [facility] Body weight 2022-03-13 03:19:00 114.76 kg [facility] BMI 2022-03-13 03:19:00 35.29 kg/m2 [facility] Procedures Procedure Date / Time Performing Clinician Source Performed CBC WITH PLATELET AND 2022-12-18 14:48:00 [facility]FFER[facility] COMPREHENSIVE METABOLIC 2022-12-18 14:48:00 [facility] PANEL PHOSPHORUS LEVEL 2022-12-18 14:48:00 [facility] ACID LEVEL 2022-12-18 14:48:00 [facility] PARATHYROID HORMONE 2022-12-18 14:48:00 [facility] CREATININE LEVEL, URINE, 2022-12-18 14:48:00 [facility] RANDOM URINALYSIS SCREEN AND 2022-12-18 14:48:00 [facility] MICROSCOPY, WITH REFLEX TO CULTURE PROTEIN, URINE, RANDOM 2022-12-18 14:48:00 Juan Chavez [facility] CBC WITH PLATELET AND 2022-12-01 21:16:00 [facility] DIFFERENTIAL Moni HEMOGLOBIN A1C 2022-12-01 21:16:00 [facility] Moni ESTIMATED GFR 2022-12-01 20:57:00 [facility] ECG 12-LEAD 2022-11-25 21:23:33 [facility] CT CHEST WO CONTRAST 2022-11-04 18:57:33 [facility] Manoj NM LUNG PERFUSION 2022-11-04 16:45:00 [facility] IMAGING Manoj FL FLUOROSCOPY OF 2022-11-04 14:57:36 [facility] DIAPHRAGM NO FILMS [facility] TTE COMPLETE, WO 2022-10-13 23:00:38 [facility] CONTRAST, W DOPPLER Moni ([id number]) US DUPLEX VENOUS LOWER 2022-10-13 20:57:25 [facility] EXTREMITY BILATERAL Moni XR CHEST 2 VW 2022-10-13 19:05:00 [facility] Moni XR CHEST 1 VW 2022-03-25 18:10:58 Emil Pinzon [facility] XR RIBS 3 VW LEFT 2022-03-25 18:10:58 Emil Pinzon [facility] NOTICE OF PRIVACY 2022-03-25 17:21:13 Doctor Unassigned, No [facility] Name [facility] CONSENT/REFUSAL FOR 2022-03-25 17:20:07 Doctor Unassigned, No [facility] COMPREHENSIVE METABOLIC 2022-03-12 18:23:00 [facility] PANEL B NATRIURETIC PEPTIDE 2022-03-12 18:23:00 Lorraine Barrios [facility] D-DIMER 2022-03-12 18:23:00 [facility] WITH PLATELET AND 2022-03-12 18:23[facility]00 [facility] WITH PLATELET AND 2022-03-12 18:23:00 Denis [facility] DIFFERENTIAL Diagnostic Colonoscopy 2010-04-26 00:00:00 [place] [facility] Hand Surgery 2008-04-26 00:00:00 Grewal [facility]-Arthroscopic Knee 2002-04-26 00:00:00 [place] [facility] Surgery Urology Plan of Care Planned Activity Planned Date Details Comments Source Future Scheduled Test 2023-02-10 DIABETES: RETINAL EYE [facility] 09:59:57 EXAM [code = DIABETES: RETINAL EYE EXAM] Future Scheduled Test 2023-02-10 DIABETIC FOOT EXAM [facility] 09:59:57 [code = DIABETIC FOOT EXAM] Future Scheduled Test 2023-02-10 SHINGLES VACCINES (1 [facility] 09:59:57 of 2) [code = SHINGLES VACCINES (1 of 2)] Future Scheduled Test 2023-02-10 RSV VACCINES > 60 YR [facility] 09:59:57 (1 - 1-dose 60+ series) [code = RSV VACCINES > 60 YR (1 - 1-dose 60+ series)] Future Scheduled Test 2023-02-10 65+ PNEUMOCOCCAL [facility] [place] [place] 09:59:57 VACCINE (2 - PCV) [code = 65+ PNEUMOCOCCAL VACCINE (2 - PCV)] Future Scheduled Test 2023-02-10 COVID-19 VACCINE (3 - [facility] 09:59:57 season) [code = COVID-19 VACCINE (3 - season)] Future Scheduled Test 2023-02-10 INFLUENZA VACCINE [facility] 09:59:57 (#1) [code = INFLUENZA VACCINE (#1)] Diagnostic Test 2022-12-15 urinalysis, dipstick Evelyn [facility] Pending 00:00:00 [code = urinalysis, Urology dipstick] Diagnostic Test 2022-12-15 culture, urine + [facility] 00:00:00 sensitivity [code = Urology culture, urine + sensitivity] Diagnostic Test 2022-12-15 cytology, urine [code Chelsea palacios [facility] Pending 00:00:00 = cytology, urine] Urology Future Scheduled Test 2022-05-10 DIABETES: RETINAL EYE [facility] 14:38:05 EXAM [code = DIABETES: RETINAL EYE EXAM] Future Scheduled Test 2022-05-10 DIABETIC FOOT EXAM [facility] 14:38:05 [code = DIABETIC FOOT EXAM] Future Scheduled Test 2022-05-10 SHINGLES VACCINES (1 [facility] 14:38:05 of 2) [code = SHINGLES VACCINES (1 of 2)] Future Scheduled Test 2022-05-10 65+ PNEUMOCOCCAL [facility] [place] [place] 14:38:05 VACCINE (2 - PCV) [code = 65+ PNEUMOCOCCAL VACCINE (2 - PCV)] Future Scheduled Test 2022-05-10 COVID-19 VACCINE ([address] [place] [address] 14:38:05 Booster for Pfizer series) [code = COVID-19 VACCINE (3 - Booster for Pfizer series)] Future Scheduled Test 2022-05-10 INFLUENZA VACCINE [facility] 14:38:05 [code = INFLUENZA VACCINE] Future Scheduled Test 2022-05-10 DIABETES: RETINAL EYE [facility] 14:38:05 EXAM [code = DIABETES: RETINAL EYE EXAM] Future Scheduled Test 2022-05-10 DIABETIC FOOT EXAM [facility] 14:38:05 [code = DIABETIC FOOT EXAM] Future Scheduled Test 2022-05-10 SHINGLES VACCINES (1 [facility] 14:38:05 of 2) [code = SHINGLES VACCINES (1 of 2)] Future Scheduled Test 2022-05-10 65+ PNEUMOCOCCAL [facility] [place] [place] 14:38:05 VACCINE (2 - PCV) [code = 65+ PNEUMOCOCCAL VACCINE (2 - PCV)] Future Scheduled Test 2022-05-10 COVID-19 VACCINE ([address] [place] [address] 14:38:05 Booster for Pfizer series) [code = COVID-19 VACCINE (3 - Booster for Pfizer series)] Future Scheduled Test 2022-05-10 INFLUENZA VACCINE [facility] 14:38:05 [code = INFLUENZA VACCINE] Future Scheduled Test 2022-04-09 65+ PNEUMOCOCCAL [facility] [place] [place] 08:37:41 VACCINE (1 - PCV) [code = 65+ PNEUMOCOCCAL VACCINE (1 - PCV)] Future Scheduled Test 2022-04-09 DIABETES: RETINAL EYE [facility] 08:37:41 EXAM [code = DIABETES: RETINAL EYE EXAM] Future Scheduled Test 2022-04-09 DIABETIC FOOT EXAM [facility] 08:37:41 [code = DIABETIC FOOT EXAM] Future Scheduled Test 2022-04-09 SHINGLES VACCINES (1 [facility] 08:37:41 of 2) [code = SHINGLES VACCINES (1 of 2)] Future Scheduled Test 2022-04-09 COVID-19 VACCINE (3 [facility] 08:37:41 Booster for Pfizer series) [code = COVID-19 VACCINE (3 - Booster for Pfizer series)] Future Scheduled Test 2022-04-09 INFLUENZA VACCINE [facility] 08:37:41 [code = INFLUENZA VACCINE] Future Scheduled Test 2022-04-09 65+ PNEUMOCOCCAL [facility] 08:37:41 VACCINE (1 - PCV) [code = 65+ PNEUMOCOCCAL VACCINE (1 - PCV)] Future Scheduled Test 2022-04-09 DIABETES: RETINAL EYE [facility] 08:37:41 EXAM [code = DIABETES: RETINAL EYE EXAM] Future Scheduled Test 2022-04-09 DIABETIC FOOT EXAM [facility] 08:37:41 [code = DIABETIC FOOT EXAM] Future Scheduled Test 2022-04-09 SHINGLES VACCINES (1 [facility] 08:37:41 of 2) [code = SHINGLES VACCINES (1 of 2)] Future Scheduled Test 2022-04-09 COVID-19 VACCINE ([address] [place] [address] 08:37:41 Booster for Pfizer series) [code = COVID-19 VACCINE (3 - Booster for Pfizer series)] Future Scheduled Test 2022-04-09 INFLUENZA VACCINE [facility] 08:37:41 [code = INFLUENZA VACCINE] Future Appointment 2023-06-17 Evelyn Becerra 00:00:00 6560 [place] [facility] Urology [address]; , [place] [address] Encounters Start End Encounter Admission Attending Care Care Encounter Source Date/Time Date/Time Type Type Clinicians Facility Department ID 2023-01-09 2023-01-09 Outpatient [facility] [id number] [place] 00:00:00 00:00:00 [id number] [facility] Urology 2023-01-01 2023-01-01 Outpatient Goldfarb_R [facility] 2217 [place] 00:00:00 00:00:00 [id number] [facility] 2023-01-01 2023-01-01 Refill Alexander 1.2.840.1 [id number] Methodi 00:00:00 00:00:00 , Dennis [address]229.1.[address] Moni 3.430.2.7 Hospit a .3.879357 l .8 2022-12-24 2022-12-24 Office Srinath Chavez2.840.5 [id number] Methodi 11:45:00 16:26:33 Visit Juan Velasco 89691.1.1 495 s t 3.430.2.7 Hospit a .3.384546 l .8 2022-12-24 2022-12-24 Outpatient SCOTT [facility] [id number] [place] 00:00:00 00:00:00 JUAN Gutierrez Method i 2022-12-16 2022-12-16 Outpatient Goldfarb[facility]R [facility] 2217 [place] 00:00:00 00:00:00 [id number] [facility] 2022-12-15 2022-12-15 Outpatient Goldfarb_R [facility] 8 [place] 00:00:00 00:00:00 [id number] [facility] 2022-12-15 2022-12-[address] [facility] [place] - [id number] [facility] 00:00:00 00:00:00 Uri Castellon MD: [id number] [facility] [address], [place] [address] , Ph. 2022-12-01 2022-12-01 Lab Alexander 1.2.840.1 [id number] 21 [id number] Methodi 15:50:00 15:55:00 , Dennis 87736.1.[address] Moni 3.430.2.7 Hospit a .3.063520 l .8 2022-12-01 2022-12-01 Outpatient ALEXANDER [facility] [id number] [place] 00:00:00 00:00:00 , DENNIS [address] 2022-11-25 2022-11-30 Office Alexander 1.2.840.1 [id number] Methodi 15:20:00 00:13:24 Visit , Dennis 11234.1.[address] Moni 3.430.2.7 Hospit a .3.482036 l .8 2022-11-25 2022-11-25 [facility]patient [facility] [id number] [place] 00:00:00 00:00:00 , DENNIS [address] 2022-11-04 2022-11-04 [facility], 1.2.840.1 [id number] 21 [id number] Methodi 11:29:17 23:59:00 Encounter Jes 34207.1.[address] Manoj 3.430.2.7 Hospi ta .3.640743 l .8 2022-11-04 2022-11-04 [facility], 1.2.840.1 [id number] 21 [id number] Methodi 10:40:44 11:28:00 Encounter Jes 40993.1.[address] Manoj 3.430.2.7 Hospi ta .3.331641 l .8 2022-11-04 2022-11-04 [facility], 1.2.840.1 [id number] 21 [id number] Methodi 09:30:00 10:39:00 Encounter Jes 49201.1.[address] Manoj 3.430.2.7 Hospi ta .3.342909 l .8 2022-11-04 2022-11-04 Outpatient [facility] [id number] [place] 00:00:00 00:00:00 JES [address] 2022-11-04 2022-11-04 Outpatient [facility] [id number] [place] 00:00:00 00:00:00 JES [address] 2022-11-04 2022-11-04 Outpatient [facility] [id number] [place] 00:00:00 00:00:00 JES [address] 2022-11-02 2022-11-02 Transcribe [facility], 1.2.840.1 [id number] Methodi 00:00:00 00:00:00 Orders Jes 85784.1.[address] Manoj 3.430.2.7 Hospi ta .3.895369 l .8 2022-10-21 2022-10-21 Telephone Alexander .2.840.1 [id number] Methodi 00:00:00 00:00:00 , Dennis 62595.1.[address] Moni 3.430.2.7 Hospit a .3.252219 l .8 2022-10-13 2022-10-13 [facility].2.840.1 [id number] 2 [id number] Methodi 14:15:59 23:59:00 Encounter , Dennis 98781.1.[address] Moni 3.430.2.7 Hospit a .3.204951 l .8 2022-10-13 2022-10-13 [facility] .[facility].840.1 [id number] 2 [id number] Methodi 13:53:02 14:14:00 Encounter , Dennis [address]951.1.[address] Moni 3.430.2.7 Hospit a .3.727893 l .8 2022-10-13 2022-10-13 [facility]patient [facility] [id number] [place] 00:00:00 00:00:00 , DENNIS 728 Method i 2022-10-13 2022-10-13 Outpatient [facility] [id number] [place] 00:00:00 00:00:00 , DENNIS 727 Method i 2022-10-13 2022-10-13 [id number] [place] 00:00:00 00:00:00 , DENNIS 933 Method i 2022-10-06 2022-10-06 Telephone Albertgayusef 1.2.840.1 [id number] Methodi 00:00:00 00:00:00 , Dennis 47030.1.[address] Moni 3.430.2.7 Hospit a .3.122061 l .8 2022-10-05 2022-10-05 Orders Chris, 1.2.840.1 [id number] Methodi 00:00:00 00:00:00 Only April 49917.1.[address] 3.430.2.7 Hospit a .3.091013 l .8 2022-10-05 2022-10-05 Telephone Kurrelmeyer 1.2.840.1 [id number] Methodi 00:00:00 00:00:00 , Dennis [address]474.1.[address] Moni 3.430.2.7 Hospit a .3.441303 l .8 2022-10-04 2022-10-04 Refill Kurrelmeyer 1.2.840.1 [id number] Methodi 00:00:00 00:00:00 , Dennis [address]254.1.[address] Moni 3.430.2.7 Hospit a .3.641456 l .8 2022-09-03 2022-09-03 Refill Scott, 1.2.840.3 [id number] Methodi 00:00:00 00:00:00 Juan Velasco 04792.1.1 415 s t 3.430.2.7 Hospit a .3.620651 l .8 2022-07-06 2022-07-06 Refill Lydiarelmeyer 1.2.840.1 [id number] Methodi 00:00:00 00:00:00 , Dennis 70801.1.[address] Moni 3.430.2.7 Hospit a .3.746007 l .8 2022-06-17 2022-06-17 Outpatient [facility] 8 [place] 00:00:00 00:00:00 [id number] [facility] 2022-06-16 2022-06-16 Outpatient Goldfarb_R U [facility] 2218 [place] 00:00:00 00:00:00 [id number] [facility] 2022-06-16 2022-06-16 [facility] [place] - [id number] [facility] 00:00:00 00:00:00 Uri Castellon MD: 6560 [facility] [address], [place] [address] , Ph. 2022-06-12 2022-06-12 Outpatient Goldfarb_R [facility] 2217 [place] 00:00:00 00:00:00 [id number] [facility] 2022-06-03 2022-06-03 Refill Alexander 1.2.840.1 [id number] Methodi 00:00:00 00:00:00 , Dennis [address]314.1.[address] Moni 3.430.2.7 Hospit a .3.591847 l .8 2022-06-01 2022-06-01 Outpatient [facility]farb[facility]R [facility] 2217 [place] 00:00:00 00:00:00 [id number] [facility] 2022-06-01 2022-06-01 Outpatient Goldfarb_R [facility] 2217 [place] 00:00:00 00:00:00 74765 [facility] 2022-05-25 2022-05-25 Office Scott 1.2.840.4 [id number] Methodi 12:00:00 12:40:50 Visit Juan Velasco 01115.1.1 257 s t 3.430.2.7 Hospit a .3.878645 l .8 2022-05-25 2022-05-25 Outpatient Goldfarb_R [facility] 2217 [place] 00:00:00 00:00:00 52423 [facility] 2022-05-25 2022-05-25 Outpatient SCOTT [facility] [id number] [place] 00:00:00 00:00:00 [address] [facility] 2022-05-25 2022-05-25 Travel 1.2.840.1 1.2.277.675 [id number] Methodi 00:00:00 00:00:[address] 3.430.2.7 0.2.7.3.698 Ho spita .3.490050 084.8 l .8 2022-05-25 2022-05-[address] [facility] [place] - [id number] Starla cox 00:00:00 00:00:00 RavinderUri roblero MD: 6560 [facility] Urology [facility] [address], [place] [address] , Ph. 2022-04-09 2022-04-09 Telephone Kurrelmeyer 1.2.840.1 [id number] Methodi 00:00:00 00:00:00 , Dennis [address]4211.1.[address] Moni 3.430.2.7 Hospit a .3.773850 l .8 2022-04-09 2022-04-09 Refill Kurrelmeyer 1.2.840.1 [id number] 21 [id number] Methodi 00:00:00 00:00:00 , Dennis [address]107.1.[address] Moni 3.430.2.7 Hospit a .3.525484 l .8 2022-04-09 2022-04-09 Telephone Kurrelmeyer 1.2.840.1 [id number] Methodi 00:00:00 00:00:00 , Dennis [address]70.1.[address] Moni 3.430.2.7 Hospit a .3.320848 l .8 2022-04-09 2022-04-09 Refill Kurrelmeyer 1.2.840.1 [id number] 21 [id number] Methodi 00:00:00 00:00:00 , Dennis 98935.1.[address] Moni 3.430.2.7 Hospit a .3.796119 l .8 2022-03-25 2022-03-25 Emergency Jeromy [facility] 1.2.840.114 [id number] [facility] 11:29:00 13:03:00 Emil AMBRIZ 350.1.13.10 i ty of [place] 4.2.7.2.686 [facility] [id number] [address] 2022-03-25 2022-03-25 Emergency X JEROMY, [facility] ERT [id number] [facility] 11:29:00 13:03:00 EMIL itgilberto [facility] 2022-03-12 2022-03-12 Office Lorraine Barrios 1.2.840.1 [id number] Methodi 13:30:00 13:30:00 Visit Stephanie 47509.1.[address] 3.430.2.7 Hospit a .3.411508 l .8 2022-03-12 2022-03-12 Office Lorraine Barrios 1.2.840.1 [id number] [id number] Methodi 13:30:00 13:30:00 Visit Stephanie 09244.1.[address] 3.430.2.7 Hospit a .3.138073 l .8 2022-03-12 2022-03-12 Travel 1.2.840.1 1.2.373.974 6130 [id number] Methodi 00:00:00 00:00:[address] 3.430.2.7 0.2.7.3.698 Ho spita .3.940170 084.8 l .8 2022-03-12 2022-03-12 Travel 1.2.840.1 1.2.767.133 9109 [id number] Methodi 00:00:00 00:00:[address] 3.430.2.7 0.2.7.3.698 Ho spita .3.835453 084.8 l .8 2022-03-01 2022-03-01 Refill [place] 1.2.840.1 [id number] Methodi 00:00:00 00:00:00 , [place] [address]86.1.[address] Moni 3.430.2.7 Hospit a .3.431900 l .8 2022-03-01 2022-03-01 Refill [place] 1.2.840.1 [id number] 21 [id number] Methodi 00:00:00 00:00:00 , Dennis 78657.1.[address] Moni 3.430.2.7 Hospit a .3.597686 l .8 2022-01-11 2022-01-11 Refill Kurrelmeyer 1.2.840.1 [id number] Methodi 00:00:00 00:00:00 , Dennis [address].1.[address] Moni 3.430.2.7 Hospit a .3.386656 l .8 2021-12-31 2022-01-01 Office Scott, 1.2.840.5 [id number] 2099 [id number] Methodi 14:00:00 08:17:17 Visit Juan Velasco 28162.1.1 604 s t 3.430.2.7 Hospit a .3.178568 l .8 2021-12-31 2021-12-31 Travel 1.2.840.1 1.2.250.513 [id number] Methodi 00:00:00 00:00:[address] 3.430.2.7 0.2.7.3.698 Ho spita .3.402806 084.8 l .8 2021-08-30 2021-08-30 Outpatient Goldfarb[facility]R [facility] [address] [place] 00:00:00 00:00:00 [address] [facility] 2021-08-30 2021-08-30 Refill Kurrelmeyer 1.2.840.1 [id number] Methodi 00:00:00 00:00:00 , Dennis [address]157.1.[address] Moni 3.430.2.7 Hospit a .3.569574 l .8 2021-08-30 2021-08-30 Refill Scott, 1.2.840.6 [id number] 2099 [id number] Methodi 00:00:00 00:00:00 Juan Velasco 48694.1.1 420 s t 3.430.2.7 Hospit a .3.918809 l .8 2021-08-19 2021-08-19 Outpatient Goldfarb_R [facility] [address] [place] 07:42:00 07:42:00 [facility] 2021-07-14 2021-07-14 Outpatient Goldfarb_R [facility] 8 [place] 05:31:00 05:31:00 [facility] 2021-07-11 2021-07-11 Outpatient Goldfarb_R [facility] [address] [place] 04:19:00 04:19:00 [facility] 2021-06-26 2021-06-26 Outpatient Goldfarb_R [facility] 8 [place] 10:14:00 10:14:00 [facility] 2021-06-25 2021-06-25 Outpatient Goldfarb_R [facility] [address] [place] 04:13:00 04:13:00 [facility] 2021-06-25 2021-06-25 Outpatient Ravinder, [facility] U [id number] 784-9 00:00:00 00:00:00 Bhupendra u35-66om-6 [id number]-c0ccf8 9d5bab 2021-06-25 2021-06-[address] [facility] [place] - [id number] brooke 00:00:00 00:00:00 RavinderUri MD: [address] [facility] [address], [place] [address] , Ph. 2021-05-26 2021-05-26 Outpatient Goldfarb_R [facility] 8 [place] 02:22:00 02:22:00 [facility] 2021-05-19 2021-05-19 Office Scott, 1.2.840.2 [id number] 2099 [id number] Methodi 11:45:00 12:29:33 Visit Juan Velasco 16829.1.1 430 s t 3.430.2.7 Hospit a .3.980165 l .8 2021-05-19 2021-05-19 Travel 1.2.840.1 1.2.574.537 4006 [id number] Methodi 00:00:00 00:00:00 33412.1.1 350.1.13.43 775 3.430.2.7 0.2.7.3.698 spita .3.382388 084.8 l .8 2020-08-22 2020-08-22 Outpatient Goldfarb_R HMU [facility] [address] [place] 01:04:00 01:04:00 05808 [facility] 2020-07-18 2020-07-18 Outpatient Goldfarb_R HMU [facility] [address] [place] 01:01:00 01:01:00 [address]208 [facility] 2020-05-24 2020-05-24 Outpatient KURRELMEYER [facility] [id number] [place] 00:00:00 00:00:00 , DENNIS [address] 2020-05-23 2020-05-23 Outpatient HOLLI, [facility] [id number] [place] 00:00:00 00:00:00 BEVERLY [address] 2020-05-04 2020-05-06 Outpatient [facility] [id number] [place] 00:00:00 00:00:[address] 2019-11-22 2019-11-23 Outpatient KURRELMSYER [facility] [id number] [place] 00:00:00 00:00:00 , DENNIS [address] Results Test Description Test Time Test Comments Results Result Comments Source Comprehensive metabolic panel 2022-12-21 17:14:00 Test Item Value Reference Range Interpretation Comme nts Glucose (test code = 124 mg/dL 65-99 H Fastin g reference 2345-7) interval For so meone without known d iabetes, a glucose valuebe tween 100 and 125 mg/dL i s consistent withprediabetes and should be confi rmed with afollow-up test . BUN (test code = 3094-0) 21 mg/dL 7-25 Creatinine (test code = 1.60 mg/dL 0.70-1.22 H 2160-0) eGFR (test code = 43 See_Comment L [Automate d message] The 72539-9) system which ge nerated this result tra nsmitted reference range : > OR = 60 mL/min/1.73m 2. The reference range was not used to interpr et this result as normal/abnormal . BUN/creatinine ratio 13 See_Comment [Autom ated message] The (test code = 3097-3) system which generated this result tra nsmitted reference range : 6 - 22 (calc). The ref erence range was not u sed to interpret this result as normal/abnormal . Sodium (test code = 141 mmol/L 970-663 2823-2) Potassium (test code = 5.1 mmol/L 3.5-5.3 2823-3) Chloride (test code = 106 mmol/L 98-110 2075-0) CO2 (test code = 8-9) 28 mmol/L 20-32 Calcium (test code = 9.4 mg/dL 8.6-10.3 81855-5) Protein (test code = 6.8 g/dL 6.1-8.1 2885-2) Albumin (test code = 3.9 g/dL 3.6-5.1 1751-7) Globulin, total (test 2.9 See_Comment [Auto mated message] The code = 73137-7) system which generated this result tra nsmitted reference range : 1.9 - 3.7 g/dL (calc) . The reference range was not used to interpr et this result as normal/abnormal . Albumin/globulin ratio 1.3 See_Comment [Aut omated message] The (test code = 1759-0) system which generated this result tra nsmitted reference range : 1.0 - 2.5 (calc). The reference range was not u sed to interpret this result as normal/abnormal . Total bilirubin (test 0.7 mg/dL 0.2-1.2 code = 1975-2) Alkaline phosphatase 57 U/L 35-144 (test code = 6768-6) AST (test code = 1920-8) 16 U/L 10-35 ALT (test code = 1742-6) 12 U/L 9-46 FRANCESCO (test code = FRANCESCO) FASTING:YES FASTING: YES RAC (test code = RAC) Performing Organization Information: Site ID: RGA Name: [facility] Address: [address] [place] [address] Director: Ramo Holm Lab Interpretation (test Abnormal code = 41997-8) [facility] [id number] 17:14:00 Test Item Value Reference Interpretation Comments Range PTH (test 48 pg/mL 16-77 Interpretive G uide Intact code = PTH Calcium---- 2731-8) ---- ---Normal Parathyroid Nor mal NormalHypoparat hyroidism Low or Low Normal LowHyperparathy roidism Primary Normal or High High Secondary High Normal or Low Tertiary High HighNon-Parathy roid Hypercalcemia L ow or Low Normal High FRANCESCO (test FASTING:YES code = FASTING: YES FRANCESCO) RAC (test Performing code = Organization RAC) Information: Site ID: A [facility]: [facility] Address: [address] [place] [address] Director: [facility]osph[facility] [id number] 17:14:00 Test Item Value Reference Range Interpretation Comments Phosphorus (test code 3.2 mg/dL 2.1-4.3 = 2777-1) FRANCESCO (test code = FRANCESCO) FASTING:YES FASTING: YES RAC (test code = RAC) Performing Organization Information: Site ID: [facility] Name: [facility] Address: [address] [place] [address] Director: [facility]onU[facility] acid [id number] 17:14:00 Test Item Value Reference Range Interpretation Comments Uric acid 7.1 mg/dL 4.0-8.0 Therapeutic tar get (test code = for gout patien ts: 3084-1) <6.0 mg/dL FRANCESCO (test FASTING:YES FASTING: code = FRANCESCO) YES RAC (test Performing code = RAC) Organization Information: Site ID: [facility] Name: [facility] Address: [address] [place] [phone] Director: [facility] with platelet and [id number] 17:14:00 Test Item Value Reference Range Interpretation Comments WBC (test code = 5.6 See_Comment [Automated 1858-2) message] The system which generated this result transmitted reference range : 3.8 - 10.8 Thousand/uL. Th e reference range was not used to interpret this result as normal/abnormal . RBC (test code = 4.97 See_Comment [Automated 789-8) message] The system which generated this result transmitted reference range : 4.20 - 5.80 Million/uL. The reference range was not used to interpret this result as normal/abnormal . HGB (test code = 15.6 g/dL 13.2-17.1 718-7) HCT (test code = 45.6 % 38.5-50.0 4544-3) MCV (test code = 91.8 fL 80.0-100.0 787-2) MCH (test code = 31.4 pg 27.0-33.0 785-6) MCHC (test code = 34.2 g/dL 32.0-36.0 786-4) RDW (test code = 12.9 % 11.0-15.0 788-0) Platelet count 209 See_Comment [Automated (test code = message] The 777-3) system which generated this result transmitted reference range : 140 - 400 Thousand/uL. Th e reference range was not used to interpret this result as normal/abnormal . MPV (test code = 9.8 fL 7.5-12.5 776-5) Neutrophils, 3343 See_Comment [Automated absolute (test message] The code = 751-8) system which generated this result transmitted reference range : 1,500 - 7,800 cells/uL. The reference range was not used to interpret this result as normal/abnormal . Lymphocytes, 1523 See_Comment [Automated absolute (test message] The code = 731-0) system which generated this result transmitted reference range : 850 - 3,900 cells/uL. The reference range was not used to interpret this result as normal/abnormal . Monocytes, 493 See_Comment [Automated absolute (test message] The code = 742-7) system which generated this result transmitted reference range : 200 - 950 cells/uL. The reference range was not used to interpret this result as normal/abnormal . Eosinophils, 202 See_Comment [Automated absolute (test message] The code = 711-2) system which generated this result transmitted reference range : 15 - 500 cells/uL. The reference range was not used to interpret this result as normal/abnormal . Basophils, 39 See_Comment [Automated absolute (test message] The code = 704-7) system which generated this result transmitted reference range : 0 - 200 cells/u L. The reference range was not used to interpr et this result as normal/abnormal . Neutrophils (test 59.7 % code = 770-8) Lymphocytes (test 27.2 % code = 736-9) Monocytes (test 8.8 % code = 5905-5) Eosinophils (test 3.6 % code = 713-8) Basophils + RC 0.7 % (test code = 706-2) FRANCESCO (test code = FASTING:YES FRANCESCO) FASTING: YES RAC (test code = Performing RAC) Organization Information: Site ID: RGA Name: [facility] Address: [address] [place] [address] Director: [facility]onCreatinine level, urine, [id number] 17:14:00 Test Item Value Reference Range Interpretation Comments Creatinine, urine 104 mg/dL 20-320 (mg/dL) (test code = 2161-8) FRANCESCO (test code = FASTING:YES FASTING: YES FRANCESCO) RAC (test code = Performing Organization RAC) Information: Site ID: RGA Name: [facility] Lab Address: [address] [place] [phone] Director: [facility]onProtein, urine, [id number] 17:14:00 Test Item Value Reference Range Interpretation Comments Protein, urine 18 mg/dL 5-25 random (test code = 2888-6) FRANCESCO (test code = FASTING:YES FASTING: YES FRANCESCO) RAC (test code = Performing Organization RAC) Information: Site ID: RGA Name: [facility] Address: [address] [place] [phone] Director: [facility]onUrinalysis screen and microscopy, with reflex to culture 2022-12-21 17:14:00 Test Item Value Reference Interpretation Comments Range Color, UA (test code YELLOW YELLOW = 5778-6) Appearance, UA (test CLEAR CLEAR code = 5767-9) Specific gravity, UA 1.017 1.001-1.035 (test code = 5811-5) pH, UA (test code = 6.5 5.0-8.0 5803-2) Glucose, UA (test NEGATIVE NEGATIVE code = 74803-4) Bilirubin, UA (test NEGATIVE NEGATIVE code = 5770-3) Ketones, UA (test NEGATIVE NEGATIVE code = 2514-8) Blood, UA (test code NEGATIVE NEGATIVE = 5794-3) Protein, UA (test TRACE NEGATIVE A code = 70653-5) Nitrite, UA (test NEGATIVE NEGATIVE code = 5802-4) Leukocyte esterase, 2+ NEGATIVE A UA (test code = 5799-2) WBC, UA (test code = 10-20 See_Comment A [Autom ated 5821-4) message] The sy stem which generated this result transmitted reference range : < OR = 5 /HPF. Th e reference range was not used to interpret this result as normal/abnormal . RBC, UA (test code = NONE SEEN See_Comment [Autom ated 21571-5) message] The sy stem which generated this result transmitted reference range : < OR = 2 /HPF. Th e reference range was not used to interpret this result as normal/abnormal . Squamous epithelial NONE SEEN See_Comment [Automa sena cells, UA (test code message ] The system = 56827-8) which generated this result transmitted reference range : < OR = 5 /HPF. Th e reference range was not used to interpret this result as normal/abnormal . Bacteria, UA (test NONE SEEN NONE SEEN /HPF code = 5769-5) Hyaline casts, UA NONE SEEN NONE SEEN /LPF (test code = 5796-8) Note: (test code = This urin e was 8251-1) analyzed for th e presence of WBC , RBC, bacteria, casts, and othe r formed elements . Only those nez perce ents seen were repor sena. Urine culture (test SEE NOTE A CULTURE , URINE, code = 630-4) ROUTINE Micro Number: [id number] Test Status: Fi nal Specimen Source : Urine Specimen Quality: [place] te Result: 10,000-49,000 CFU/mL of Enterococcus faecalis E.faec [place] - INT JOSE M AMPICIL INOCENCIA S <=2 CIPROFLOX ACIN R >=8 LEVOFLOXA LETHA R >=8 NITROFURANTOIN S <=16 TETRACYCLI NE R >=16 VANCOMYCIN S 1 S=Susceptible I=Intermediate R=Resistant * = Not TestedNR = Not Reported NN = See Therapy Comment s FRANCESCO (test code = FASTING:YES FRANCESCO) FASTING: YES RAC (test code = Performing RAC) Organization Information: Site ID: RGA [facility]: [facility] Address: [address] [place] [address] Director: Ramo Holm Lab Interpretation Abnormal (test code = 07320-2) [facility] 12 [id number] 13:03:11 Test Item Value Reference Range Interpretation Comments Ventricular rate (test 93 code = 253) Atrial rate (test code 93 = 255) MO interval (test code 216 = 266) QRSD interval (test 94 code = 260) QT interval (test code 376 = 264) QTC interval (test code 467 = 265) P axis 1 (test code = 22 267) QRS axis 1 (test code = -32 268) T wave axis (test code 68 = 270) EKG impression (test Poor data code = 273) quality-Sinus rhythm with 1st degree AV block-Left axis deviation-Cannot rule out Anterior infarct , age undetermined-Abnormal ECG-In automated comparison with ECG of 24-MAY-2020 16:43,-MO interval has increased-Vent. rate has increased BY 34 BPM-QRS axis shifted left-Minimal criteria for Anterior infarct are now present-T wave inversion no longer evident in Inferior leads- [facility] macro (dipstick) panel - [id number] 10:49:00 Test Item Value Reference Range Interpretation Comments leukocytes (test code moderate neg = leukocytes) urobilinogen (test 0.2 E.U./dL sm amt (.5-1mg/dL) code = urobilinogen) protein (test code = 30 mg/dL See_Comment [Autom ated protein) message] The sy stem which generated this result transmitted reference range : <=150 mg/d. The reference range was not used to interpret this result as normal/abnormal . pH (test code = pH) 5.5 4.5-8 blood (test code = moderate See_Comment [Automat ed blood) message] The sy stem which generated this result transmitted reference range : <=3 RBC. The reference range was not used to interpret this result as normal/abnormal . specific gravity 1.015 1.005-1.025 (test code = specific gravity) ketone (test code = negative none ketone) bilirubin (test code negative neg = bilirubin) glucose (test code = negative See_Comment [Autom ated glucose) message] The sy stem which generated this result transmitted reference range : <=130 mg/d. The reference range was not used to interpret this result as normal/abnormal . color (test code = yellow yellow color) clarity (test code = clear clear or cloudy clarity) nitrite (test code = positive neg nitrite) [facility] UrologyUrinalysis macro (dipstick) panel - [id number] 10:49:00 Test Item Value Reference Range Interpretation Comments leukocytes (test code moderate neg = leukocytes) urobilinogen (test 0.2 E.U./dL sm amt (.5-1mg/dL) code = urobilinogen) protein (test code = 30 mg/dL See_Comment [Autom ated protein) message] The sy stem which generated this result transmitted reference range : <=150 mg/d. The reference range was not used to interpret this result as normal/abnormal . pH (test code = pH) 5.5 4.5-8 blood (test code = moderate See_Comment [Automat ed blood) message] The sy stem which generated this result transmitted reference range : <=3 RBC. The reference range was not used to interpret this result as normal/abnormal . specific gravity 1.015 1.005-1.025 (test code = specific gravity) ketone (test code = negative none ketone) bilirubin (test code negative neg = bilirubin) glucose (test code = negative See_Comment [Autom ated glucose) message] The sy stem which generated this result transmitted reference range : <=130 mg/d. The reference range was not used to interpret this result as normal/abnormal . color (test code = yellow yellow color) clarity (test code = clear clear or cloudy clarity) nitrite (test code = positive neg nitrite) [facility] UrologyPSA, serum or [id number] 00:00:00 Test Item Value Reference Range Interpretation Comments PSA testosterone (test code = PSA testosterone) PSA_1 (test code = PSA_1) 1.68 [facility] UrologyBacteria identified in Urine by [id number] 00:00:00 Urine CultureP[facility] UrologyComprehensive metabolic [id number] 20:36:00 Test Item Value Reference Range Interpretation Comments Glucose (test code = 92 mg/dL 65-99 Fastin g 2345-7) reference interval BUN (test code = 24 mg/dL 7-25 3094-0) Creatinine (test 1.62 mg/dL 0.70-1.22 H code = 2160-0) eGFR (test code = See_Comment L The eGFR i s based 8257) on the CKD-EPI 2020 equation. To calculate the n ew eGFR from a previous Creatinine or Cystatin Cresul t, go to [email or web address] ne y.org/professhernandez na narendra/kdoqi/gfr%5F ca lculator [Automated message] The system which generated this result transmitted reference range : > OR = 60 mL/min/1.73m2. The reference range was not used to interpr et this result as normal/abnormal . BUN/creatinine ratio See_Comment [Autom ated (test code = 3097-3) message ] The system which generated this result transmitted reference range : 6 - 22 (calc). The reference range was not used to interpr et this result as normal/abnormal . Sodium (test code = 141 mmol/L 455-402 2854-2) Potassium (test code 4.9 mmol/L 3.5-5.3 = 2823-3) Chloride (test code 106 mmol/L 98-110 = 2075-0) CO2 (test code = 29 mmol/L 20-32 2027-9) Calcium (test code = 9.5 mg/dL 8.6-10.3 52484-6) Protein (test code = 7.3 g/dL 6.1-8.1 2885-2) Albumin, S (test 3.9 g/dL 3.6-5.1 code = 1751-7) Globulin, total See_Comment [Automated (test code = message] The 63274-3) system which generated this result transmitted reference range : 1.9 - 3.7 g/dL (calc). The reference range was not used to interpret this result as normal/abnormal . Albumin/globulin See_Comment [Automated ratio (test code = message] The 0) system which generated this result transmitted reference range : 1.0 - 2.5 (calc ). The reference range was not used to interpr et this result as normal/abnormal . Total bilirubin 0.5 mg/dL 0.2-1.2 (test code = 1974-) Alkaline phosphatase 62 U/L 35-144 (test code = 6768-6) AST (test code = 17 U/L 10-35 1920-8) ALT (test code = 15 U/L 9-46 1742-6) FRANCESCO (test code = FASTING:UNKNOWN FRANCESCO) FASTING: UNKNOWN RAC (test code = Performing RAC) Organization Information: Site ID: [facility] Name: [facility] Lab Address: [address] [place] [phone] Director: Beverly Bland Lab Interpretation Abnormal (test code = 44182-5) [facility] natriuretic [id number] 20:36:00 Test Item Value Reference Range Interpretation Comments BNP (test 52 pg/mL See_Comment BNP levels inc rease code = with age in the 86203-0) generalpopulati on with the highest dc ues seen inindividuals g reater than 75 years o f age.Reference: J. Am. Ismael. Cardiol. 2002; 40:976-982. [Au tomated message] The sy stem which generated this result transmit sena reference range : <=100. The reference r domingo was not used to int erpret this result as normal/abnormal . FRANCESCO (test FASTING:UNKNOWN code = FRANCESCO) FASTING: UNKNOWN RAC (test Performing code = RAC) Organization Information: Site ID: [facility] Name: [facility] Address: [address] [place] [phone] Director: Beverly Bland [facility] and [id number] 20:36:00 Test Item Value Reference Range Interpretation Comments WBC (test code = See_Comment [Automated 0890-2) message] The system which generated this result transmitted reference range : 3.8 - 10.8 Thousand/uL. Th e reference range was not used to interpret this result as normal/abnormal . RBC (test code = See_Comment [Automated 089-8) message] The system which generated this result transmitted reference range : 4.20 - 5.80 Million/uL. The reference range was not used to interpret this result as normal/abnormal . HGB (test code = 15.0 g/dL 13.2-17.1 718-7) HCT (test code = 44.7 % 38.5-50.0 4544-3) MCV (test code = 93.1 fL 80.0-100.0 787-2) MCH (test code = 31.3 pg 27.0-33.0 785-6) MCHC (test code = 33.6 g/dL 32.0-36.0 786-4) RDW (test code = 13.1 % 11.0-15.0 788-0) Platelet count See_Comment [Automated (test code = message] The 777-3) system which generated this result transmitted reference range : 140 - 400 Thousand/uL. Th e reference range was not used to interpret this result as normal/abnormal . MPV (test code = 9.6 fL 7.5-12.5 776-5) Neutrophils, See_Comment [Automated absolute (test message] The code = 751-8) system which generated this result transmitted reference range : 1,500 - 7,800 cells/uL. The reference range was not used to interpret this result as normal/abnormal . Lymphocytes, See_Comment [Automated absolute (test message] The code = 731-0) system which generated this result transmitted reference range : 850 - 3,900 cells/uL. The reference range was not used to interpret this result as normal/abnormal . Monocytes, See_Comment [Automated absolute (test message] The code = 742-7) system which generated this result transmitted reference range : 200 - 950 cells/uL. The reference range was not used to interpret this result as normal/abnormal . Eosinophils, See_Comment [Automated absolute (test message] The code = 711-2) system which generated this result transmitted reference range : 15 - 500 cells/uL. The reference range was not used to interpret this result as normal/abnormal . Basophils, See_Comment [Automated absolute (test message] The code = 704-7) system which generated this result transmitted reference range : 0 - 200 cells/u L. The reference range was not used to interpr et this result as normal/abnormal . Neutrophils (test 60.7 % code = 770-8) Lymphocytes (test 24.6 % code = 736-9) Monocytes (test 10.3 % code = 5905-5) Eosinophils (test 3.6 % code = 713-8) Basophils + RC 0.8 % (test code = 706-2) FRANCESCO (test code = FASTING:UNKNOWN FRANCESCO) FASTING: UNKNOWN RAC (test code = Performing RAC) Organization Information: Site ID: [facility] Name: [facility] Address: [address] [place], [place] [id number] Director: [facility] HospitalWpecbywwQ-[id number] 20:36:00 Test Item Value Reference Range Interpretation Comments D-dimer See_Comment The D-Dimer te st is used (test code frequently to e xcludean = 27801-0) acute PE or DVT . In patients with a low tomoderate clin ical risk assessment and a D-Dimerresult < 0.50 mcg/mL FEU, the likelihood of a PEor DVT is very low. Ho wever, a thromboembolice vent should not be e xcluded solely on the b asisof the D-Dimer level. Increased levels of D-Dim erare associated with a PE, DVT, DIC, malignancies,in flammation , sepsis, surge ry, trauma, pregnan cy,and advancing patie nt age.[Varun 2006 11:295(2):199-2 07] For additional info rmation, please refer to:http://educa tion.[employer].com /faq/FAQ14 9(This link is being provided for informational/e ducational purposes only) [Automated message] The sy stem which generated this result transmitted ref erence range: <0.50 mc g/mL FEU. The reference r domingo was not used to int erpret this result as normal/abnormal . FRANCESCO (test FASTING:UNKNOWN code = FRANCESCO) FASTING: UNKNOWN RAC (test Performing code = RAC) Organization Information: Site ID: RGA [facility] Address: [address] [place] [phone] Director: Beverly FangBar[facility] CenterCom[facility] [id number] 20:36:00 Test Item Value Reference Range Interpretation Comments Glucose (test code = 92 mg/dL 65-99 Fastin g 2345-7) reference interval BUN (test code = 24 mg/dL 7-25 3094-0) Creatinine (test 1.62 mg/dL 0.70-1.22 H code = 2160-0) eGFR (test code = See_Comment L The eGFR i s based 8257) on the CKD-EPI 2020 equation. To calculate the n ew eGFR from a previous Creatinine or Cystatin Cresul t, go to https://www.kid ne y.org/professio na ls/kdoqi/gfr%5F ca lculator [Automated message] The system which generated this result transmitted reference range : > OR = 60 mL/min/1.73m2. The reference range was not used to interpr et this result as normal/abnormal . BUN/creatinine ratio See_Comment [Autom ated (test code = 3097-3) message ] The system which generated this result transmitted reference range : 6 - 22 (calc). The reference range was not used to interpr et this result as normal/abnormal . Sodium (test code = 141 mmol/L 191-050 7417-2) Potassium (test code 4.9 mmol/L 3.5-5.3 = 2823-3) Chloride (test code 106 mmol/L 98-110 = 2075-0) CO2 (test code = 29 mmol/L 20-32 2027-9) Calcium (test code = 9.5 mg/dL 8.6-10.3 00672-2) Protein (test code = 7.3 g/dL 6.1-8.1 2885-2) Albumin, S (test 3.9 g/dL 3.6-5.1 code = 1751-7) Globulin, total See_Comment [Automated (test code = message] The 98484-4) system which generated this result transmitted reference range : 1.9 - 3.7 g/dL (calc). The reference range was not used to interpret this result as normal/abnormal . Albumin/globulin See_Comment [Automated ratio (test code = message] The 1759-0) system which generated this result transmitted reference range : 1.0 - 2.5 (calc ). The reference range was not used to interpr et this result as normal/abnormal . Total bilirubin 0.5 mg/dL 0.2-1.2 (test code = 1974-) Alkaline phosphatase 62 U/L 35-144 (test code = 6768-6) AST (test code = 17 U/L 10-35 1920-8) ALT (test code = 15 U/L 9-46 1742-6) FRANCESCO (test code = FASTING:UNKNOWN FRANCESCO) FASTING: UNKNOWN RAC (test code = Performing RAC) Organization Information: Site ID: [facility] Name: [facility] Lab Address: [address] [place] [address] Director: Beverly Bland Lab Interpretation Abnormal (test code = 90976-4) [facility] natriuretic [id number] 20:36:00 Test Item Value Reference Range Interpretation Comments BNP (test 52 pg/mL See_Comment BNP levels inc rease code = with age in the 33628-1) generalpopulati on with the highest dc ues seen inindividuals g reater than 75 years o f age.Reference: J. Am. Ismael. Cardiol. 2002; 40:976-982. [Au tomated message] The sy stem which generated this result transmit sena reference range : <=100. The reference r domingo was not used to int erpret this result as normal/abnormal . FRANCESCO (test FASTING:UNKNOWN code = FRANCESCO) FASTING: UNKNOWN RAC (test Performing code = RAC) Organization Information: Site ID: [facility] Name: [facility] Address: [address] [place] [phone] Director: Beverly Bland [facility] with [facility] and [id number] 20:36:00 Test Item Value Reference Range Interpretation Comments WBC (test code = See_Comment [Automated 5049-2) message] The system which generated this result transmitted reference range : 3.8 - 10.8 Thousand/uL. Th e reference range was not used to interpret this result as normal/abnormal . RBC (test code = See_Comment [Automated 359-8) message] The system which generated this result transmitted reference range : 4.20 - 5.80 Million/uL. The reference range was not used to interpret this result as normal/abnormal . HGB (test code = 15.0 g/dL 13.2-17.1 718-7) HCT (test code = 44.7 % 38.5-50.0 4544-3) MCV (test code = 93.1 fL 80.0-100.0 787-2) MCH (test code = 31.3 pg 27.0-33.0 785-6) MCHC (test code = 33.6 g/dL 32.0-36.0 786-4) RDW (test code = 13.1 % 11.0-15.0 788-0) Platelet count See_Comment [Automated (test code = message] The 777-3) system which generated this result transmitted reference range : 140 - 400 Thousand/uL. Th e reference range was not used to interpret this result as normal/abnormal . MPV (test code = 9.6 fL 7.5-12.5 776-5) Neutrophils, See_Comment [Automated absolute (test message] The code = 751-8) system which generated this result transmitted reference range : 1,500 - 7,800 cells/uL. The reference range was not used to interpret this result as normal/abnormal . Lymphocytes, See_Comment [Automated absolute (test message] The code = 731-0) system which generated this result transmitted reference range : 850 - 3,900 cells/uL. The reference range was not used to interpret this result as normal/abnormal . Monocytes, See_Comment [Automated absolute (test message] The code = 742-7) system which generated this result transmitted reference range : 200 - 950 cells/uL. The reference range was not used to interpret this result as normal/abnormal . Eosinophils, See_Comment [Automated absolute (test message] The code = 711-2) system which generated this result transmitted reference range : 15 - 500 cells/uL. The reference range was not used to interpret this result as normal/abnormal . Basophils, See_Comment [Automated absolute (test message] The code = 704-7) system which generated this result transmitted reference range : 0 - 200 cells/u L. The reference range was not used to interpr et this result as normal/abnormal . Neutrophils (test 60.7 % code = 770-8) Lymphocytes (test 24.6 % code = 736-9) Monocytes (test 10.3 % code = 5905-5) Eosinophils (test 3.6 % code = 713-8) Basophils + RC 0.8 % (test code = 706-2) FRANCESCO (test code = FASTING:UNKNOWN FRANCESCO) FASTING: UNKNOWN RAC (test code = Performing RAC) Organization Information: Site ID: JESSICA Name: [employer] [facility] Lab Address: [address] [place] [phone] Director: Beverly Joey [facility]D-[id number] 20:36:00 Test Item Value Reference Range Interpretation Comments D-dimer See_Comment The D-Dimer te st is used (test code frequently to e xcludean = 46009-1) acute PE or DVT . In patients with a low tomoderate clin ical risk assessment and a D-Dimerresult < 0.50 mcg/mL FEU, the likelihood of a PEor DVT is very low. Ho wever, a thromboembolice vent should not be e xcluded solely on the b asisof the D-Dimer level. Increased levels of D-Dim erare associated with a PE, DVT, DIC, malignancies,in flammation , sepsis, surge ry, trauma, pregnan cy,and advancing patie nt age.[Varun 2006 11:295(2):199-2 07] For additional info rmation, please refer to:http://educa tion.[employer] /faq/FAQ14 9(This link is being provided for informational/e ducational purposes only) [Automated message] The sy stem which generated this result transmitted ref erence range: <0.50 mc g/mL FEU. The reference r domingo was not used to int erpret this result as normal/abnormal . FRANCESCO (test FASTING:UNKNOWN code = FRANCESCO) FASTING: UNKNOWN RAC (test Performing code = RAC) Organization Information: Site ID: NORMA Name: [facility] Address: [address] [place] [phone] Director: Warner Joey [facility] metabolic [id number] 20:36:00 Test Item Value Reference Range Interpretation Comments Glucose (test code = 92 mg/dL 65-99 Fastin g 2345-7) reference interval BUN (test code = 24 mg/dL 7-25 3094-0) Creatinine (test 1.62 mg/dL 0.70-1.22 H code = 2160-0) eGFR (test code = See_Comment L The eGFR i s based 8257) on the CKD-EPI 2020 equation. To calculate the n ew eGFR from a previous Creatinine or Cystatin Cresul t, go to https://www.kid ne y.org/profkarla na narendra/kdoqi/gfr%5F ca lculator [Automated message] The system which generated this result transmitted reference range : > OR = 60 mL/min/1.73m2. The reference range was not used to interpr et this result as normal/abnormal . BUN/creatinine ratio See_Comment [Autom ated (test code = 3097-3) message ] The system which generated this result transmitted reference range : 6 - 22 (calc). The reference range was not used to interpr et this result as normal/abnormal . Sodium (test code = 141 mmol/L 978-424 0216-2) Potassium (test code 4.9 mmol/L 3.5-5.3 = 2823-3) Chloride (test code 106 mmol/L 98-110 = 2075-0) CO2 (test code = 29 mmol/L 20-32 2027-9) Calcium (test code = 9.5 mg/dL 8.6-10.3 65992-6) Protein (test code = 7.3 g/dL 6.1-8.1 2885-2) Albumin, S (test 3.9 g/dL 3.6-5.1 code = 1751-7) Globulin, total See_Comment [Automated (test code = message] The 99112-5) system which generated this result transmitted reference range : 1.9 - 3.7 g/dL (calc). The reference range was not used to interpret this result as normal/abnormal . Albumin/globulin See_Comment [Automated ratio (test code = message] The 1169-0) system which generated this result transmitted reference range : 1.0 - 2.5 (calc ). The reference range was not used to interpr et this result as normal/abnormal . Total bilirubin 0.5 mg/dL 0.2-1.2 (test code = 1975-2) Alkaline phosphatase 62 U/L 35-144 (test code = 6768-6) AST (test code = 17 U/L 10-35 1920-8) ALT (test code = 15 U/L 9-46 1742-6) FRANCESCO (test code = FASTING:UNKNOWN FRANCESCO) FASTING: UNKNOWN RAC (test code = Performing RAC) Organization Information: Site ID: JESSICA Name: [facility] Address: [address] [place] [phone] Director: Beverly Bland Lab Interpretation Abnormal (test code = 27859-6) [facility] natriuretic [id number] 20:36:00 Test Item Value Reference Range Interpretation Comments BNP (test 52 pg/mL See_Comment BNP levels inc rease code = with age in the 08853-7) generalpopulati on with the highest dc ues seen inindividuals g reater than 75 years o f age.Reference: J. Am. Ismael. Cardiol. 2002; 40:976-982. [Au tomated message] The sy stem which generated this result transmit sena reference range : <=100. The reference r domingo was not used to int erpret this result as normal/abnormal . FRANCESCO (test FASTING:UNKNOWN code = FRANCESCO) FASTING: UNKNOWN RAC (test Performing code = RAC) Organization Information: Site ID: JESSICA Name: [facility] Address: [address] [place] [phone] Director: Beverly Bland [facility] with [facility] and [id number] 20:36:00 Test Item Value Reference Range Interpretation Comments WBC (test code = See_Comment [Automated 4635-2) message] The system which generated this result transmitted reference range : 3.8 - 10.8 Thousand/uL. Th e reference range was not used to interpret this result as normal/abnormal . RBC (test code = See_Comment [Automated 759-8) message] The system which generated this result transmitted reference range : 4.20 - 5.80 Million/uL. The reference range was not used to interpret this result as normal/abnormal . HGB (test code = 15.0 g/dL 13.2-17.1 718-7) HCT (test code = 44.7 % 38.5-50.0 4544-3) MCV (test code = 93.1 fL 80.0-100.0 787-2) MCH (test code = 31.3 pg 27.0-33.0 785-6) MCHC (test code = 33.6 g/dL 32.0-36.0 786-4) RDW (test code = 13.1 % 11.0-15.0 788-0) Platelet count See_Comment [Automated (test code = message] The 777-3) system which generated this result transmitted reference range : 140 - 400 Thousand/uL. Th e reference range was not used to interpret this result as normal/abnormal . MPV (test code = 9.6 fL 7.5-12.5 776-5) Neutrophils, See_Comment [Automated absolute (test message] The code = 751-8) system which generated this result transmitted reference range : 1,500 - 7,800 cells/uL. The reference range was not used to interpret this result as normal/abnormal . Lymphocytes, See_Comment [Automated absolute (test message] The code = 731-0) system which generated this result transmitted reference range : 850 - 3,900 cells/uL. The reference range was not used to interpret this result as normal/abnormal . Monocytes, See_Comment [Automated absolute (test message] The code = 742-7) system which generated this result transmitted reference range : 200 - 950 cells/uL. The reference range was not used to interpret this result as normal/abnormal . Eosinophils, See_Comment [Automated absolute (test message] The code = 711-2) system which generated this result transmitted reference range : 15 - 500 cells/uL. The reference range was not used to interpret this result as normal/abnormal . Basophils, See_Comment [Automated absolute (test message] The code = 704-7) system which generated this result transmitted reference range : 0 - 200 cells/u L. The reference range was not used to interpr et this result as normal/abnormal . Neutrophils (test 60.7 % code = 770-8) Lymphocytes (test 24.6 % code = 736-9) Monocytes (test 10.3 % code = 5905-5) Eosinophils (test 3.6 % code = 713-8) Basophils + RC 0.8 % (test code = 706-2) FRANCESCO (test code = FASTING:UNKNOWN FRANCESCO) FASTING: UNKNOWN RAC (test code = Performing RAC) Organization Information: Site ID: JESSICA Name: [facility] Address: [address] [place] [phone] Director: Beverly [facility]onsSouthview Medical CenterD-[id number] 20:36:00 Test Item Value Reference Range Interpretation Comments D-dimer See_Comment The D-Dimer te st is used (test code frequently to e xcludean = 99833-3) acute PE or DVT . In patients with a low tomoderate clin ical risk assessment and a D-Dimerresult < 0.50 mcg/mL FEU, the likelihood of a PEor DVT is very low. Ho wever, a thromboembolice vent should not be e xcluded solely on the b asisof the D-Dimer level. Increased levels of D-Dim erare associated with a PE, DVT, DIC, malignancies,in flammation , sepsis, surge ry, trauma, pregnan cy,and advancing patie nt age.[Varun 2006 11:295(2):199-2 07] For additional info rmation, please refer to:http://educa tion.[employer] /faq/FAQ14 9(This link is being provided for informational/e ducational purposes only) [Automated message] The sy stem which generated this result transmitted ref erence range: <0.50 mc g/mL FEU. The reference r domingo was not used to int erpret this result as normal/abnormal . FRANCESCO (test FASTING:UNKNOWN code = FRANCESCO) FASTING: UNKNOWN RAC (test Performing code = RAC) Organization Information: Site ID: JESSICA Name: [facility] Address: [address] [place] [phone] Director: Beverly [facility]Mem[facility] HospitalComprehensive metabolic [id number] 20:36:00 Test Item Value Reference Range Interpretation Comments Glucose (test code = 92 mg/dL 65-99 Fastin g 2345-7) reference interval BUN (test code = 24 mg/dL 7-25 3094-0) Creatinine (test 1.62 mg/dL 0.70-1.22 H code = 2160-0) eGFR (test code = See_Comment L The eGFR i s based 8257) on the CKD-EPI 2021 equation. To calculate the n ew eGFR from a previous Creatinine or Cystatin Cresul t, go to https://www.kid ne y.org/shantelle mackey/kdoqi/gfr%5F ca lculator [Automated message] The system which generated this result transmitted reference range : > OR = 60 mL/min/1.73m2. The reference range was not used to interpr et this result as normal/abnormal . BUN/creatinine ratio See_Comment [Autom ated (test code = 3097-3) message ] The system which generated this result transmitted reference range : 6 - 22 (calc). The reference range was not used to interpr et this result as normal/abnormal . Sodium (test code = 141 mmol/L 675-531 6946-2) Potassium (test code 4.9 mmol/L 3.5-5.3 = 2823-3) Chloride (test code 106 mmol/L 98-110 = 2075-0) CO2 (test code = 29 mmol/L 20-32 2027-9) Calcium (test code = 9.5 mg/dL 8.6-10.3 37226-3) Protein (test code = 7.3 g/dL 6.1-8.1 2885-2) Albumin, S (test 3.9 g/dL 3.6-5.1 code = 1751-7) Globulin, total See_Comment [Automated (test code = message] The 60192-5) system which generated this result transmitted reference range : 1.9 - 3.7 g/dL (calc). The reference range was not used to interpret this result as normal/abnormal . Albumin/globulin See_Comment [Automated ratio (test code = message] The 1750) system which generated this result transmitted reference range : 1.0 - 2.5 (calc ). The reference range was not used to interpr et this result as normal/abnormal . Total bilirubin 0.5 mg/dL 0.2-1.2 (test code = 1974-2) Alkaline phosphatase 62 U/L 35-144 (test code = 6768-6) AST (test code = 17 U/L 10-35 1920-8) ALT (test code = 15 U/L 9-46 1742-6) FRANCESCO (test code = FASTING:UNKNOWN FRANCESCO) FASTING: UNKNOWN RAC (test code = Performing RAC) Organization Information: Site ID: [facility] Name: [facility] Lab Address: [address] [place] [phone] Director: Beverly Bland Lab Interpretation Abnormal (test code = 04216-1) [facility] natriuretic [id number] 20:36:00 Test Item Value Reference Range Interpretation Comments BNP (test 52 pg/mL See_Comment BNP levels inc rease code = with age in the 35576-6) generalpopulati on with the highest dc ues seen inindividuals g reater than 75 years o f age.Reference: J. Am. Ismael. Cardiol. 2002; 40:976-982. [Au tomated message] The sy stem which generated this result transmit sena reference range : <=100. The reference r domingo was not used to int erpret this result as normal/abnormal . FRANCESCO (test FASTING:UNKNOWN code = FRANCESCO) FASTING: UNKNOWN RAC (test Performing code = RAC) Organization Information: Site ID: JESSICA Name: [facility] Address: [address] [place] [phone] Director: Beverly Bland [facility] with platelet and [id number] 20:36:00 Test Item Value Reference Range Interpretation Comments WBC (test code = See_Comment [Automated 1174-2) message] The system which generated this result transmitted reference range : 3.8 - 10.8 Thousand/uL. Th e reference range was not used to interpret this result as normal/abnormal . RBC (test code = See_Comment [Automated 067-8) message] The system which generated this result transmitted reference range : 4.20 - 5.80 Million/uL. The reference range was not used to interpret this result as normal/abnormal . HGB (test code = 15.0 g/dL 13.2-17.1 718-7) HCT (test code = 44.7 % 38.5-50.0 4544-3) MCV (test code = 93.1 fL 80.0-100.0 787-2) MCH (test code = 31.3 pg 27.0-33.0 785-6) MCHC (test code = 33.6 g/dL 32.0-36.0 786-4) RDW (test code = 13.1 % 11.0-15.0 788-0) Platelet count See_Comment [Automated (test code = message] The 777-3) system which generated this result transmitted reference range : 140 - 400 Thousand/uL. Th e reference range was not used to interpret this result as normal/abnormal . MPV (test code = 9.6 fL 7.5-12.5 776-5) Neutrophils, See_Comment [Automated absolute (test message] The code = 751-8) system which generated this result transmitted reference range : 1,500 - 7,800 cells/uL. The reference range was not used to interpret this result as normal/abnormal . Lymphocytes, See_Comment [Automated absolute (test message] The code = 731-0) system which generated this result transmitted reference range : 850 - 3,900 cells/uL. The reference range was not used to interpret this result as normal/abnormal . Monocytes, See_Comment [Automated absolute (test message] The code = 742-7) system which generated this result transmitted reference range : 200 - 950 cells/uL. The reference range was not used to interpret this result as normal/abnormal . Eosinophils, See_Comment [Automated absolute (test message] The code = 711-2) system which generated this result transmitted reference range : 15 - 500 cells/uL. The reference range was not used to interpret this result as normal/abnormal . Basophils, See_Comment [Automated absolute (test message] The code = 704-7) system which generated this result transmitted reference range : 0 - 200 cells/u L. The reference range was not used to interpr et this result as normal/abnormal . Neutrophils (test 60.7 % code = 770-8) Lymphocytes (test 24.6 % code = 736-9) Monocytes (test 10.3 % code = 5905-5) Eosinophils (test 3.6 % code = 713-8) Basophils + RC 0.8 % (test code = 706-2) FRANCESCO (test code = FASTING:UNKNOWN FRANCESCO) FASTING: UNKNOWN RAC (test code = Performing RAC) Organization Information: Site ID: RGA Name: [facility] Address: [address] [place] [phone] Director: Beverly Palencia ArzskljuO-omodq9556-71-18 20:36:00 Test Item Value Reference Range Interpretation Comments D-dimer See_Comment The D-Dimer te st is used (test code frequently to e xcludean = 68266-7) acute PE or DVT . In patients with a low tomoderate clin ical risk assessment and a D-Dimerresult < 0.50 mcg/mL FEU, the likelihood of a PEor DVT is very low. Ho wever, a thromboembolice vent should not be e xcluded solely on the b asisof the D-Dimer level. Increased levels of D-Dim erare associated with a PE, DVT, DIC, malignancies,in flammation , sepsis, surge ry, trauma, pregnan cy,and advancing patie nt age.[Varun 2006 11:295(2):199-2 07] For additional info rmation, please refer to:http://Bababooa tion.[employer] /faq/FAQ14 9(This link is being provided for informational/e ducational purposes only) [Automated message] The sy stem which generated this result transmitted ref erence range: <0.50 mc g/mL FEU. The reference r domingo was not used to int erpret this result as normal/abnormal . FRANCESCO (test FASTING:UNKNOWN code = FRANCESCO) FASTING: UNKNOWN RAC (test Performing code = RAC) Organization Information: Site ID: RGA Name: [facility] Address: [address] [place] [address] Director: Beverly Bland [facility] natriuretic [id number] 20:36:00 Test Item Value Reference Range Interpretation Comments BNP (test 52 pg/mL <=100 BNP levels inc rease code = with age in the 89589-2) generalpopulati on with the highest dc ues seen inindividuals g reater than 75 years o f age.Reference: J. Am. Ismael. Cardiol. 2002; 40:976-982. FRANCESCO (test FASTING:UNKNOWN code = FRANCESCO) FASTING: UNKNOWN RAC (test Performing code = RAC) Organization Information: Site ID: RGA Name: [facility] Address: [address] [place] [address] Director: [facility]-[id number] 20:36:00 Test Item Value Reference Range Interpretation Comments D-dimer 0.29 See_Comment The D-Dimer te st is used (test code frequently to e xcludean = 00302-0) acute PE or DVT . In patients with a low tomoderate clin ical risk assessment and a D-Dimerresult < 0.50 mcg/mL FEU, the likelihood of a PEor DVT is very low. Ho wever, a thromboembolice vent should not be e xcluded solely on the b asisof the D-Dimer level. Increased levels of D-Dim erare associated with a PE, DVT, DIC, malignancies,in flammation , sepsis, surge ry, trauma, pregnan cy,and advancing patie nt age.[Varun 2006 11:295(2):199-2 07] For additional info rmation, please refer to:http://educa tion.[employer] /faq/FAQ14 9(This link is being provided for informational/e ducational purposes only) [Automated message] The sy stem which generated this result transmitted ref erence range: <0.50 mc g/mL FEU. The reference r domingo was not used to int erpret this result as normal/abnormal . FRANCESCO (test FASTING:UNKNOWN code = FRANCESCO) FASTING: UNKNOWN RAC (test Performing code = RAC) Organization Information: Site ID: [id number] Address: [address] [place] [id number] Director: [facility]
[2023-02-10 11:19] LABS: Absolute Lymphocytes (CBC) 1.8 K/uL (0.7-4.9); Hematocrit 47.8 % (39.6-49.0); Lymphocytes % 20.2 % (15.3-44.8); MCV 94.6 fL (80-100); MPV 7.2 fL (7.6-11.3); Platelets 279 thou/uL (152-406); RBC Red Blood Cell Count 5.05 M/uL (4.33-5.43)
[2023-02-10 11:25] LABS: Protime INR 1.45
[2023-02-10 11:47] LABS: ALT/SGPT 25 U/L (16-61); AST/SGOT 15 U/L (15-37); Alkaline Phosphatase 68 U/L (45-117); BUN Blood Urea Nitrogen 25 mg/dL (7-18); Bicarbonate 23 mEq/L (21-32); Bilirubin Total 0.3 mg/dL (0.2-1.0); Glomerular Filtration Rate 44 ml/min (=/>90); Glucose Level 104 mg/dL (74-106); Magnesium 1.9 mg/dL (1.6-2.4); NT PRO-BNP 198 pg/mL (<450); Potassium 4.4 mEq/L (3.5-5.1); Protein, Total 7.2 g/dL (6.4-8.2); Sodium Level 139 mEq/L (136-145); Troponin High Sensitivity 14.9 pg/mL (<58.9)
[2023-02-10 11:50] LABS: Bilirubin Direct < 0.1 mg/dL (0-0.2); Bilirubin Indirect, Calculated ND mg/dL (0.2-0.8)
--- NOTE | 2023-02-10 12:05 | RAD REPORT ---
EXAM DESCRIPTION: RAD - Chest Single View - 02/10/2023 11:24 am CLINICAL HISTORY: DYSPNEA Chest pain. COMPARISON: CHEST SINGLE VIEW dated 05/08/2014; CHEST SINGLE VIEW dated 07/24/2011; CHEST PA AND LAT 2 VIEW dated 07/21/2011; CHEST SINGLE VIEW dated 10/27/2009 FINDINGS: Portable technique limits examination quality. Mild bilateral pulmonary opacities are seen likely representing pneumonia or pulmonary edema. The hea rt is mildly enlarged in size. No displaced fractures.
--- NOTE | 2023-02-10 12:21 | EKG ---
Test Date: 2023-02-10 Test Time: 11:16:51 Ski Molder: CECIL MEASUREMENT RESULTS: Intervals: Rate: 83 VT: 182 QRSD: 90 QT: 388 QTc: 455 [place]: P: -15 VT: 182 QRS: -43 T: 86 INTERPRETIVE STATEMENTS: Sinus rhythm with marked sinus arrhythmia Left axis deviation Nonspecific ST and T wave abnormality Abnormal ECG Compared to ECG 07/25/2011 06:53:16 Left-axis deviation now present ST (T wave) deviation now present Electronically Signed On 02-10-23 12:20:50 CDT by Maxime Oconnor
--- NOTE | 2023-02-10 12:29 | RAD REPORT ---
EXAM DESCRIPTION: CTAbdomen Pelvis W Contrast - 02/10/2023 12:05 pm CLINICAL HISTORY: Abdominal pain. GI BLEED COMPARISON: No comparisons TECHNIQUE: Biphasic CT imaging of the abdomen and pelvis was performed with 100 ml non-ionic IV cont rast. All CT scans are performed using dose optimization technique as appropriate and may include automated exposure control or mA/KV adjustment according to patient size. FINDINGS: The lower lung hills are emphysematous but clear.Small hiatal hernia. The liver shows mild fatty infiltration. The spleen, pancreas, adrenal glands and kidneys are within normal limits. No bowel obstruction, free air, free fluid or abscess. Prominent stool retention is seen throughout t he descending colon. There is mild inflammation adjacent to several diverticula in mid descending col on. Sigmoid diverticulosis coli without diverticulitis. Appendectomy. No evidence of significant lym phadenopathy. No suspicious bony findings. IMPRESSION: Mild acute diverticulitis is suspected mid descending colon. No abscess is evident. Afte r appropriate therapy, followup colonoscopy would be recommended for direct visualization of this reg ion.
--- NOTE | 2023-02-10 12:41 | ER ---
Nurse's Notes [facility] Name: French Ziegler Age: 83 yrs Sex: Male : 1940 Arrival Date: 02/10/2023 Time: 10:07 Bed 18 Private MD: Diagnosis: Diverticulitis, GI bleed Presentation: 02/10 10:40 Chief complaint: Patient states: BLOOD IN STOOLS X 3 STARTED THIS AM. Coronavirus db screen: Vaccine status: Client denies travel out of the [place] in the last 14 days. At this time, the client does not indicate any symptoms associated with coronavirus-19. Ebola Screen: Patient negative for fever greater than or equal to 101.5 degrees Fahrenheit, and additional compatible Ebola Virus Disease symptoms Patient denies exposure to infectious person. Patient denies travel to an Ebola-affected area in the 21 days before illness onset. No symptoms or risks identified at this time. Initial Sepsis Screen: Does the patient meet any 2 criteria? No. Patient's initial sepsis screen is negative. Does the patient have a suspected source of infection? No. Patient's initial sepsis screen is negative. Risk Assessment: Do you want to hurt yourself or someone else? Patient reports no desire to harm self or others. Onset of symptoms was February 10, 2023. 10:40 Method Of Arrival: Ambulatory db 10:40 Acuity: TIMOTHY 2 db Triage Assessment: 10:45 General: Appears in no apparent distress. comfortable, Behavior is calm, cooperative. db Pain: Denies pain. GI: Abdomen is distended, Stools are reported to be BLOODY. Last BM was February 10, 2023. 10:45 Respiratory: Airway is patent. db Historical: - Allergies: 11:48 PENICILLINS; db 11:48 CEPHALOSPORINS; db - Immunization history:: Client reports receiving the 2nd dose of the Covid vaccine. - Social history:: Smoking status: Patient/guardian denies using tobacco, but has a distant history of tobacco abuse. Screenin:[facility] ED Fall Risk Assessment (Adult) History of falling in the last 3 months, db including since admission No falls in past 3 months (0 pts) Confusion or Disorientation No (0 pts) Intoxicated or Sedated No (0 pts) Impaired Gait No (0 pts) Mobility Assist Device Used No (0 pt) Altered Elimination No (0 pt) Score/Fall Risk Level 0 - 2 = Low Risk Oriented to surroundings, Maintained a safe environment. Abuse screen: Denies threats or abuse. Denies injuries from another. Nutritional screening: No deficits noted. Tuberculosis screening: No symptoms or risk factors identified. Assessment: 11:50 Reassessment: Patient appears in no apparent distress at this time. No changes from db previously documented assessment. Patient and/or family updated on plan of care and expected duration. Pain level reassessed. Patient is alert, oriented x 3, equal unlabored respirations, skin warm/dry/pink. 12:45 Reassessment: Patient appears in no apparent distress at this time. No changes from kc6 previously documented assessment. Patient and/or family updated on plan of care and expected duration. Pain level reassessed. Patient is alert, oriented x 3, equal unlabored respirations, skin warm/dry/pink. d/c pending IV antibiotic completion. 14:02 Reassessment: Patient appears in no apparent distress at this time. No changes from db previously documented assessment. Patient and/or family updated on plan of care and expected duration. Pain level reassessed. Patient is alert, oriented x 3, equal unlabored respirations, skin warm/dry/pink. Patient states feeling better. Vital Signs: 10:40 BP 98 / 65; Pulse 78; Resp 16; Pulse Ox 94% on R/A; Weight 113.4 kg; Height 5 ft. 10 db in. ; 11:30 BP 100 / 55; Pulse 89; Resp 24; Temp 97.8(O); Pulse Ox 94% on R/A; db 12:45 BP 107 / 71; Pulse 82; Resp 19 S; Pulse Ox 98% on R/A; kc6 13:30 BP 111 / 70; Pulse 75; Resp 16; Pulse Ox 95% on R/A; db 10:40 Body Mass Index 35.87 (113.40 kg, 177.8 cm) db ED Course: 10:11 Patient arrived in ED. im 10:20 Orestes David MD is Attending Physician. sp3 10:45 Arm band placed on Patient placed in an exam room. db 11:01 Joanna Mccracken, KASSY is Primary Nurse. db 11:12 Inserted saline lock: 22 gauge in right forearm, using aseptic technique. Blood ds4 collected. Missed attempt(s): 22 gauge in right forearm. Bleeding controlled, band aid applied, catheter tip intact. 11:26 XRAY Chest (1 view) In Process Unspecified. EDMS 11:48 Triage completed. db 11:51 Patient has correct armband on for positive identification. Bed in low position. Call db light in reach. Side rails up X2. Client placed on continuous cardiac and pulse oximetry monitoring. NIBP monitoring applied. Warm blanket given. 12:06 CT Abd/Pelvis - IV Contrast Only In Process Unspecified. EDMS 14:02 No provider procedures requiring assistance completed. IV discontinued, intact, db bleeding controlled, No redness/swelling at site. 14:02 Provided Education on: DISCHARGE. db Administered Medications: 12:55 Drug: Ciprofloxacin IVPB 400 mg 200 ml IVPB once over 60 mins Volume: 200 ml; Route: kc6 IVPB; Infused Over: 60 mins; Site: right forearm; 14:04 Follow up: Response: No adverse reaction; IV Status: Completed infusion; IV Intake: db 200ml 12:55 Drug: metroNIDAZOLE IVPB 500 mg 100 ml IVPB at 200 ml/hr once over 30 mins Volume: 100 kc6 ml; Route: IVPB; Rate: 200 ml/hr; Infused Over: 30 mins; Site: right forearm; 14:04 Follow up: Response: No adverse reaction; IV Status: Completed infusion; IV Intake: db 100ml Medication: 11:50 VIS not applicable for this client. db Intake: 14:04 IV: 200ml; Total: 200ml. db 14:04 IV: 100ml; Total: 300ml. db Outcome: 12:41 Discharge ordered by MD. le 14:02 Discharged to home ambulatory, db 14:02 Condition: stable 14:02 Discharge instructions given to patient, Instructed on discharge instructions, follow up and referral plans. Prescriptions given X 2, 14:05 Patient left the ED. db Signatures: Dispatcher [employer] EDMS Antonio Harris ds4 Orestes David MD MD sp3 Stacy Anguiano RN RN kc6 Joanna Mccracken, KASSY RN db Juliana Savage
--- NOTE | 2023-02-10 12:41 | EDPHYS ---
Physician Documentation [facility] Name: French Ziegler Age: 83 yrs Sex: Male : 1940 Arrival Date: 02/10/2023 Time: 10:07 Bed 18 Private MD: ED Physician Orestes David HPI: 02/10 10:55 This 83 yrs old Male presents to ER via Unassigned with complaints of Bloody Stools. 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 Is also had progressively worsening shortness of breath over the last few days particularly on exertion. No prior GI bleed in the past and he sees Dr. Young for his periodic colonoscopies for which she has another appointment on March 02. Patient denies bleeding from any other sites. He denies headache, neck pain, chest pain, vomiting, nausea, trauma, easy bruising, syncope, near syncope, other focal neurological deficit, rash, or any other signs or symptoms on ROS at this time.. Historical: - Allergies: 11:48 PENICILLINS; db 11:48 CEPHALOSPORINS; db - Immunization history:: Client reports receiving the 2nd dose of the Covid vaccine. - Social history:: Smoking status: Patient/guardian denies using tobacco, but has a distant history of tobacco abuse. ROS: 10:57 Constitutional: Negative for fever, chills, and weight loss, Eyes: Negative for injury, sp3 pain, redness, and discharge, ENT: Negative for injury, pain, and discharge, Neck: Negative for injury, pain, and swelling, Cardiovascular: Negative for chest pain, palpitations, and edema, Back: Negative for injury and pain, MS/Extremity: Negative for injury and deformity, Skin: Negative for injury, rash, and discoloration, Neuro: Negative for headache, weakness, numbness, tingling, and seizure, Psych: Negative for depression, anxiety, suicide ideation, homicidal ideation, and hallucinations, Allergy/Immunology: Negative for hives, rash, and allergies, Endocrine: Negative for neck swelling, polydipsia, polyuria, polyphagia, and marked weight changes, Hematologic/Lymphatic: Negative for swollen nodes, abnormal bleeding, and unusual bruising, 10:57 All other systems are negative, Exam: 10:57 Constitutional: This is a well developed, well nourished patient who is awake, alert, sp3 and in no acute distress. Head/Face: Normocephalic, atraumatic. Eyes: Pupils equal round and reactive to light, extra-ocular motions intact. Lids and lashes normal. Conjunctiva and sclera are non-icteric and not injected. Cornea within normal limits. Periorbital areas with no swelling, redness, or edema. ENT: Nares patent. No nasal discharge, no septal abnormalities noted. External auditory canals are clear. Oropharynx with no redness, swelling, or masses, exudates, or evidence of obstruction, uvula midline. Mucous membranes moist. Neck: Trachea midline, no thyromegaly or masses palpated, and no cervical lymphadenopathy. Supple, full range of motion without nuchal rigidity, or vertebral point tenderness. No Meningismus. Chest/axilla: Normal chest wall appearance and motion. Nontender with no deformity. No lesions are appreciated. Cardiovascular: Regular rate and rhythm with a normal S1 and S2. No gallops, murmurs, or rubs. Normal PMI, no JVD. No pulse deficits. Respiratory: Lungs have equal breath sounds bilaterally, clear to auscultation and percussion. No rales, rhonchi or wheezes noted. No increased work of breathing, no retractions or nasal flaring. Abdomen/GI: Soft, non-tender, with normal bowel sounds. No distension or tympany. No guarding or rebound. No evidence of tenderness throughout. Back: No spinal tenderness. No costovertebral tenderness. Full range of motion. Skin: Warm, dry with normal turgor. Normal color with no rashes, no lesions, and no evidence of cellulitis. MS/ Extremity: Pulses equal, no cyanosis. Neurovascular intact. Full, normal range of motion. Neuro: Awake and alert, GCS 15, oriented to person, place, time, and situation. Cranial nerves II-XII grossly intact. Motor strength 5/5 in all extremities. Sensory grossly intact. Cerebellar exam normal. Normal gait. Psych: Awake, alert, with orientation to person, place and time. Behavior, mood, and affect are within normal limits. 10:57 Abdomen/GI: Rectal exam is pending., 11:29 ECG was reviewed by the Attending Physician. EKG demonstrates normal sinus rhythm at 83 sp3 bpm with normal intervals, normal QRS, leftward axis, nonspecific diffuse ST/T changes without evidence of acute ischemia. Vital Signs: 10:40 BP 98 / 65; Pulse 78; Resp 16; Pulse Ox 94% on R/A; Weight 113.4 kg; Height 5 ft. 10 db in. ; 11:30 BP 100 / 55; Pulse 89; Resp 24; Temp 97.8(O); Pulse Ox 94% on R/A; db 12:45 BP 107 / 71; Pulse 82; Resp 19 S; Pulse Ox 98% on R/A; kc6 13:30 BP 111 / 70; Pulse 75; Resp 16; Pulse Ox 95% on R/A; db 10:40 Body Mass Index 35.87 (113.40 kg, 177.8 cm) db MDM: 10:20 Patient medically screened. sp3 10:57 Data reviewed: vital signs, nurses notes, lab test result(s), radiologic studies. ED sp3 course: 83-year-old male with lower GI bleed on Xarelto. Differential diagnosis includes intestinal/sigmoid bleed, hemorrhoidal bleed, over anticoagulation, or any combination of the above. Patient is not in extremis, septic or distress. Work-up will include laboratory values including type and screen, CT scan of the abdomen pelvis, chest x-ray for his dyspnea and general observation. Disposition pending work-up and patient course.. 12:39 ED course: Patient has acute diverticulitis on CT scan which is the likely source of sp3 his bleeding. Will tell patient to hold Xarelto for 48 hours start him on Cipro and Flagyl p.o. after 1 dose of IV meds in the ER prior to discharge. He has existing follow-up with Dr. Young on March 02 which I will tell him to keep her try and move up if possible. Hemoglobin is normal and no other abnormalities are noted.. 02/10 10:36 Order name: Basic Metabolic Panel; Complete Time: 12:02 sp3 02/10 10:36 Order name: CBC with Diff; Complete Time: 11:29 sp3 02/10 10:36 Order name: LFT's; Complete Time: 12:02 sp3 02/10 10:36 Order name: Magnesium; Complete Time: 12:02 sp3 02/10 10:36 Order name: NT PRO-BNP; Complete Time: 12:02 sp3 02/10 10:36 Order name: PT-INR; Complete Time: 11:29 sp3 02/10 10:36 Order name: Troponin HS; Complete Time: 12:02 sp3 02/10 10:38 Order name: Type And Screen; Complete Time: 12:05 sp3 02/10 12:10 Order name: ABO/RH no charge; Complete Time: 12:37 EDMS 02/10 10:36 Order name: XRAY Chest (1 view); Complete Time: 12:05 sp3 02/10 10:36 Order name: CT Abd/Pelvis - IV Contrast Only; Complete Time: 12:37 sp3 02/10 10:36 Order name: EKG; Complete Time: 10:37 sp3 02/10 10:36 Order name: Cardiac monitoring; Complete Time: 11:35 sp3 02/10 10:36 Order name: EKG - Nurse/Tech; Complete Time: 11:19 sp3 02/10 10:36 Order name: IV Saline Lock; Complete Time: 11:12 sp3 02/10 10:36 Order name: Labs collected and sent; Complete Time: 11:12 sp3 Administered Medications: 12:55 Drug: Ciprofloxacin IVPB 400 mg 200 ml IVPB once over 60 mins Volume: 200 ml; Route: kc6 IVPB; Infused Over: 60 mins; Site: right forearm; 14:04 Follow up: Response: No adverse reaction; IV Status: Completed infusion; IV Intake: db 200ml 12:55 Drug: metroNIDAZOLE IVPB 500 mg 100 ml IVPB at 200 ml/hr once over 30 mins Volume: 100 kc6 ml; Route: IVPB; Rate: 200 ml/hr; Infused Over: 30 mins; Site: right forearm; 14:04 Follow up: Response: No adverse reaction; IV Status: Completed infusion; IV Intake: db 100ml Disposition Summary: 02/10/23 12:41 Discharge Ordered Notes: Location: Home sp3 Condition: Stable sp3 Diagnosis - Diverticulitis, GI bleed sp3 Followup: sp3 - With: Private Physician - When: Upon discharge from the Emergency Department - Reason: Continuance of care Discharge Instructions: - Discharge Summary Sheet sp3 - Diverticulitis sp3 - Gastrointestinal Bleeding sp3 Forms: - Medication Reconciliation Form sp3 - Thank You Letter sp3 - Antibiotic Education sp3 - Prescription Opioid Use sp3 - Patient Portal Instructions sp3 - Leadership Thank You Letter sp3 Prescriptions: - Cipro 500 mg Oral tablet - take 1 tablet ORAL route every 12 hours for 7 days; 14 tablet; Refills: 0, sp3 Product Selection Permitted - Flagyl 500 mg Oral tablet - take 1 tablet ORAL route every 8 hours for 7 days; 21 tablet; Refills: 0, sp3 Product Selection Permitted Signatures: Dispatcher [employer] EDOrestes Lei MD MD sp3 Stacy Anguiano RN RN kc6 Joanna Mccracken RN RN db
[2023-02-10] MEDS ORDERED: METRONIDAZOLE 500mg IVPB 500 MG/100 ML BAG IV ONE (13:01)
[2023-02-10] MEDS ORDERED: CIPROFLOXACIN 400mg IV 400 MG/200 ML BAG IV ONE (13:01)
[2023-02-10 14:36] VITALS: TEMP 97.8
[2023-02-10 14:38] VITALS: BP 111/70; O2SAT 95
== END 2023-02-10 14:05 | disposition home or self-care (01) ==
LOC: ER 10:07
DX: K57.32 Diverticulitis of large intestine without perforation or abscess without bleeding (principal); E11.9 Type 2 diabetes mellitus without complications; Z88.0 Allergy status to penicillin; Z88.3 Allergy status to other anti-infective agents; Z79.01 Long term (current) use of anticoagulants; Z86.718 Personal history of other venous thrombosis and embolism; Z86.711 Personal history of pulmonary embolism
CPT/HCPCS: 93005; 85025; 80048; 36415; 86900; 83735; 86850; 85610; 86901; 80076; 84484; 83880; 74177; 71045; Q9967; J0744